=== PATIENT | female | born 1940 | race Caucasian/White ===

== ENCOUNTER 2018-06-23 21:38 | Inpatient (IN) ==
--- OUTSIDE RECORDS SUMMARY | 2018-06-23 21:42 | External Medical Summary | Continuity of Care Document ---
:1940 Author Name Emily Stubbs, Provider Address Unavailable Unavailable , Care Team Providers Name Role Phone Unavailable Unavailable Unavailable SONNY MALLOY Unavailable Unavailable Unavailable Unavailable Unavailable Problems History of endometrial cancer (V10.42) (Z85.42) Dementia (294.20) (F03.90) Menopausal symptoms (627.2) (N95.1) Allergies and Adverse Reactions No Known Drug Allergies (Allergy) Medications Aricept TABS , M.D. Refills: 0 Aspirin 81 MG TABS , M.D. Refills: 0 Procedures History of Total Abdominal Hysterectomy Status: Completed Immunizations Immunizations not documented Social History - Smoking Status Never smoker Plan of Treatment Planned Observations Planned Goals not documented Results No Known Results Results not documented
[2018-06-23] MEDS ORDERED: LORazepam 2 MG/ML VIAL (IM USE) ONE (22:47)
--- NOTE | 2018-06-23 22:51 | XRay Report ---
SINGLE VIEW CHEST CLINICAL HISTORY: Fall. Dementia. FINDINGS: An AP, portable, supine chest radiograph is obtained. No prior studies are available for co mparison at the time of dictation. The examination is degraded by portable technique and patient rota tion. The heart is enlarged. There is prominence of the pulmonary vasculature. Nonspecific interstit ial thickening is likely chronic. No airspace consolidation or large pleural effusion is identified. No pneumothorax is seen. The skeletal structures are osteopenic. The bony thorax is grossly intact. IMPRESSION: 1. Cardiomegaly with prominence of the pulmonary vasculature. Correlate clinically for evidence of mi ld congestive failure. 2. No airspace consolidation or large pleural effusion is identified. Electronically signed by: Garcia Dick M.D. 06/23/2018 10:50 PM
--- NOTE | 2018-06-23 22:53 | XRay Report ---
SINGLE VIEW PELVIS; 2 VIEWS LEFT HIP CLINICAL HISTORY: Fall with left hip pain. FINDINGS: An AP view of the pelvis with AP and cross table lateral views of the left hip are obtained . No prior studies are available for comparison at the time of dictation. The skeletal structures are osteopenic. There is no radiographic evidence of acute fracture involving the right hip or the bony pelvis. There is an impacted and minimally distracted subcapital fracture of the left femur with over lying soft tissue edema. Moderate arthritic change and joint space narrowing is seen in the hips. Deg enerative sclerosis is noted in the sacroiliac joints. Lumbosacral spondylosis is partially imaged. T here are numerous pelvic phleboliths. IMPRESSION: 1. There is an impacted and minimally distracted subcapital fracture of the left femur. 2. No fracture is seen involving the right hip or the bony pelvis. Electronically signed by: Garcia Dick M.D. 06/23/2018 10:51 PM
[2018-06-23 23:01] LABS: Basophils # (auto) 0.02 K/uL (0-0.2); Basophils % (auto) 0.1 %; Eosinophils # (auto) 0.09 K/uL (0-0.5); Eosinophils % (auto) 0.6 %; Hematocrit (blood only) 40.6 % (37-47); Hemoglobin 14.2 g/dL (12.0-16.0); Immature Granulocytes # (auto) 0.11 K/uL (0.00-0.02); Immature Granulocytes % (auto) 0.8 %; Lymphocytes # (auto) 0.66 K/uL (1.2-3.4); Lymphocytes % (auto) 4.7 %; Mean Corpuscular Volume 84.9 fL (80-100); Mean Platelet Volume 11.3 fL (7.4-10.4); Monocytes # (auto) 0.75 K/uL (0.11-0.59); Monocytes % (auto) 5.4 %; Neutrophils # (auto) 12.34 K/uL (1.4-6.5); Neutrophils % (auto) 88.4 %; Platelet Count 151 K/uL (130-400); RDW Coefficient of Variation 14.3 % (11.5-14.5); RDW Standard Deviation 45.1 fL (36.4-46.3); Red Blood Count 4.78 M/uL (4.2-5.4); White Blood Count 13.97 K/uL (4.8-10.8)
[2018-06-23 23:13] LABS: INR 1.1 (0.9-1.1); Partial Thromboplastin Ratio 0.9; Partial Thromboplastin Time 23.1 Seconds (21.0-31.0); Prothrombin Time 11.2 Seconds (9.0-12.0)
[2018-06-23 23:16] LABS: BUN Creatinine Ratio 20.2 (10-20); Calcium 9.1 mg/dl (8.5-10.1); Creatinine Clr Calc Pharmacy 52.6 ml/min; Est GFR (African American) 83.8; Est GFR (Non-African American) 72.3; Potassium 2.9 mmol/L (3.5-5.1)
[2018-06-23] MEDS ORDERED: cefTRIAXone SODIUM 1,000 MG/50 ML BAG IV STA (23:19)
[2018-06-23 23:32] LABS: Appearance Urine Cloudy (Clear); Bacteria Urine Automated 4+ (Negative); Bilirubin Urine Negative (Negative); Color Urine Yellow; Epithelial Cell Urine Auto 0-5 /lpf (0-5); Glucose Urine UA Negative (Negative); Ketones Urine 2+ (Negative); Leukocyte Esterase Urine 1+ (Negative); Nitrite Urine Positive (Negative); Protein Urine 1+ (Negative); Specific Gravity Urine 1.021 (1.000-1.030); Urobilinogen Urine Negative (Negative)
[2018-06-23] MEDS ORDERED: LORazepam 0.5 MG/1 ML VIAL IV STA (23:47)
[2018-06-23] MEDS ORDERED: MoRPHine SULFATE 2 MG/ML CARP IV STA (23:47)
[2018-06-23] MEDS ORDERED: POTASSIUM CHLORIDE / WTR 10 MEQ/100 ML PLCT IV STA (23:47)
[2018-06-23 23:50] LABS: Albumin Level 3.4 gm/dl (3.4-5.0); Bilirubin Direct 0.2 mg/dl (0-0.2); Bilirubin,Total 0.7 mg/dl (0.2-1); Total Protein 6.6 gm/dl (6.4-8.2)
--- NOTE | 2018-06-24 01:07 | History and Physical Report ---
DATE OF ADMISSION: 06/23/2018 CHIEF COMPLAINT: Status post fall and left hip fracture. HISTORY OF PRESENT ILLNESS: A 78-year-old female with past medical history significant for Alzheimer's dementia. No other significant medical problems. She is only on Aricept and vitamin B1. She follows with Dr. White as PCP and [facility] for neurology . Lives with her . Since last 4-5 years, she has dementia.Now she only can recognize her . does not recognize her kids. She can eat regular food, walks without help, but walks slowly. Today, she was coming from the bathroom when she fell and could not get up and was brought in here and found to have left hip fracture. As per , there are no heart problems or lung issues. Here we could not get any history from the patient as the patient has severe dementia. She is somewhat restless and trying to get up from the bed and holding her . says he is going to stay with the patient tonight. She has tachycardia, hypoxia requiring oxygen. EKG shows sinus tachycardia. Chest x-ray, she has possible congestion. There is no edema of the lower extremity. Blood pressure is high, could be situational, mild elevation of white count. Hemoglobin is stable. Kidney function is fine. Urine looks infected. We are going to admit the patient to tele floor. The patient's and son are requesting Dr. Diaz for orthopedics and Dr. Francisco for cardiology. They personally know the doctors. Initially he wanted to take to [facility], but he is okay to stay here and get advice from Dr. Diaz. worked in [facility] in the past. ALLERGIES: No known drug allergies. PAST MEDICAL HISTORY: As mentioned above. PAST SURGICAL HISTORY: Hysterectomy with tubal ligation. MEDICATIONS: Aricept 10 mg p.o. a.m. and vitamin B1. FAMILY HISTORY: Noncontributory. SOCIAL HISTORY: No smoking history. Currently living with her . REVIEW OF SYSTEMS: Unobtainable. PHYSICAL EXAMINATION: GENERAL: The patient is old and frail, restless. VITAL SIGNS: Temperature 36.8, pulse 120, respiratory rate 18, blood pressure 198/114, and oxygen 90% on room air. HEENT: No pallor, no icterus. Pupils equal, round, reactive to light. NECK: No JVD, no neck masses. CARDIOVASCULAR: S1, S2 heard, tachycardia. No murmurs. RESPIRATORY SYSTEM: Normal AP diameter. No accessory muscle use. Mild bibasilar crackles. No wheezing. ABDOMEN: Soft, bowel sounds present, nontender. No distention. CENTRAL NERVOUS SYSTEM: Not oriented, restless, does not obey any commands. Moves extremities. EXTREMITIES: No edema, no erythema. Left lower extremity is slightly shortened and externally rotated. LABORATORY DATA: WBC 13.9, hemoglobin 14.2, hematocrit 40.6, platelets 151. PT 11.2, INR 1.1, APTT 23.1. Sodium 142, potassium 2.9, chloride 104, bicarbonate 28, BUN 16, creatinine 0.7, serum glucose 131, calcium 9.1, magnesium 2, total bilirubin 0.7, direct bilirubin 0.2, AST 27, ALT 29, alkaline phosphorus 124. Urine looks cloudy and positive for nitrite. IMAGING DATA: Hip and pelvic x-ray shows impacted and minimally distracted subcapital fracture of the left femur. Chest x-ray, cardiomegaly with prominence of the pulmonary vasculature. Clinically correlate for evidence of mild CHF. EKG: Sinus tachycardia with rate of 129. ST-T wave abnormality seen. Incomplete Left bundle branch block. ASSESSMENT AND PLAN: This is a 78-year-old female with severe dementia, presents with fall and left hip fracture. 1. Left hip fracture secondary to mechanical fall. The patient has severe dementia. There is no cardiac history. No medical problems except for Alzheimer's dementia, but patient is tachycardic and hypoxic in the ER, could be from the pain,CXR possible congestion. We will get a cardiology consult preoperative evaluation. We will get an echocardiogram. Follow troponins, follow repeat EKG,. Possible surgery after clearance from cardiology.Will keep her n.p.o. Gentle fluids. IV pain medication p.r.n., IV antiemetics p.r.n. 2. Hypoxia requiring oxygen. This may be from pain. We will rule out pulmonary embolism with a CT of the chest. Also follow echocardiogram for any congestive heart failure. The patient given gentle fluids. We will monitor for any volume overload.Family wanted to wait on CT chest for now as patient was restless whole time and was just getting calmer with meds.. Will follow d dimer. 3. Hypokalemia. Potassium of 2.9. We will replace potassium. Follow the labs. 4. Tachycardia. possibly from pain. Will follow d dimer. Iv Lopressor prn. Monitor on tele. 5. Mild elevation of alk phosp. Will follow repeat labs. 6. Dementia, on Aricept, which she will continue and vitamin B1 which will be continued. The patient is restless, we will monitor for any delirium. Currently, placed on IV Ativan p.r.n. 7. Deep venous thrombosis prophylaxis, sequential compression devices for now. 8.. Disposition: Closely monitor in tele floor. Code status DNR as per discussion with the . PT and OT and social service to help with discharge planning. The was planning for longterm with dementia unit this month and we will get social service to help with discharge planning. JAN
[2018-06-24] MEDS ORDERED: METOPROLOL TARTRATE 1 MG/ML VIAL IV STA (01:45)
[2018-06-24] MEDS ORDERED: NITROGLYCERIN SL 0.4 MG/TAB TAB SL PRN (01:45)
[2018-06-24] MEDS ORDERED: METOPROLOL TARTRATE 1 MG/ML VIAL IV PRN (01:45)
[2018-06-24] MEDS ORDERED: MoRPHine SULFATE 2 MG/ML CARP IV PRN (01:45)
[2018-06-24] MEDS ORDERED: POLYETHYLENE (MIRALAX) 17 GM PACK PO PRN (01:45)
[2018-06-24] MEDS ORDERED: LORazepam 0.5 MG/1 ML VIAL IV PRN (01:45)
[2018-06-24] MEDS ORDERED: ACETAMINOPHEN 325 MG TAB PO PRN (01:45)
[2018-06-24] MEDS ORDERED: ONDANSETRON INJ 2 MG/ML 2 ML VIAL IV PRN (01:45)
--- NOTE | 2018-06-24 01:46 | Emergency Department Note ---
History of Present Illness General Chief complaint: Fall Stated complaint: fall/ hip pain History of Present Illness This 78-year-old presents to the ER complaining of fall and inability to walk Location: Hip Quality: Demented Severity: Demented Duration: Today Timing: Patient tripped and fell Context: Patient could not walk and has not brought her in Modifying factors: better with nothing; worse with walking Patient is demented and history is obtained from the . He is the primary caregiver. The patient still is at home. He states his fell earlier today and has been unable to walk since. He is unsure which hip she fell on. He does not believe she hit her head. He denies loss of consciousness lethargy or abnormal behavior. She is not on anticoagulants. Her only medical problem is dementia per . Home Medications Home Medications Medication Instructions Recorded Confirmed Type donepezil 10 mg PO DAILY 06/24/18 06/24/18 History vitamin B complex 1 tab PO DAILY 06/24/18 06/24/18 History Allergies Allergy/AdvReac Type Severity Reaction Status Date / Time No Known Allergies Allergy Unknown Verified 06/24/18 00:20 Past Med/Surg History Medical History Dementia Social History Preferred Language: Maori Current Living Situation: Spouse Smoking Status: Unknown if ever smoked Hx Alcohol Use: No (unknown) Hx Substance Use: No (unknown) Review of Systems Unobtainable due to cognitive status Physical Exam Vital Signs Vital Signs - 24 hr 06/23/18 21:50 06/24/18 01:18 06/24/18 01:45 Temperature 36.8 C 36.8 C Temperature Source Oral Oral Sepsis Recent Fever Within 48 Hours No Sepsis New/Unexplained Change in Mental Status No Sepsis Action Taken by Nursing No Action Required Pulse Rate 120 H Pulse Rate [Right Finger] 129 H 134 H Pulse Rhythm [Right Finger] Regular Regular Pulse Strength [Right Finger] Normal Respiratory Rate 18 18 18 Respiratory Effort / Characteristics Non-Labored Non-Labored Spontaneous Respiratory Depth Normal Normal Respiratory Pattern Regular Regular Blood Pressure 198/114 H Blood Pressure [Right Arm] 174/84 H 196/93 H Blood Pressure Mean 142 Blood Pressure Mean [Right Arm] 114 127 Blood Pressure Position [Right Arm] Lying Lying Pulse Oximetry 90 96 92 Oxygen Delivery Method Room Air Nasal Cannula Nasal Cannula Oxygen Flow Rate 3 3 06/24/18 02:00 Temperature Temperature Source Sepsis Recent Fever Within 48 Hours Sepsis New/Unexplained Change in Mental Status Sepsis Action Taken by Nursing Pulse Rate 132 H Pulse Rate [Right Finger] Pulse Rhythm [Right Finger] Pulse Strength [Right Finger] Respiratory Rate Respiratory Effort / Characteristics Respiratory Depth Respiratory Pattern Blood Pressure 196/94 H Blood Pressure [Right Arm] Blood Pressure Mean Blood Pressure Mean [Right Arm] Blood Pressure Position [Right Arm] Pulse Oximetry Oxygen Delivery Method Oxygen Flow Rate VITALS: Vitals are noted on the nurse's note and reviewed by myself. Vital signs hypertensive. GENERAL: Demented female holding her 's hand, in no acute distress, nondiaphoretic, well-developed well-nourished. SKIN: The skin was without rashes, erythema, edema, or bruising. There is no tenting of the skin. Capillary reflex less than 2 seconds. HEAD: Normocephalic atraumatic. EARS: External auditory canals clear, tympanic membranes pearly molina without erythema or effusion bilaterally. EYES: Pupils equal round and reactive to light and accommodation. Conjunctivae without injection, sclerae without icterus. Extraocular movements intact. NOSE: Patent, turbinates without inflammation or discharge. MOUTH: Mucous membranes moist. Pharynx without erythema or exudate. Uvula midline. Airway patent. Tongue does not deviate. NECK: Supple without nuchal rigidity. No lymphadenopathy. No thyromegaly. Cervical spine is nontender. No JVD. HEART: Regular rate and rhythm LUNGS: Clear to auscultation bilaterally without wheezes, rales or rhonchi. No retractions or accessory muscle use. ABDOMEN: Positive bowel sounds x 4. Normal tympanic percussion. Soft, nontender, without masses or organomegaly. Slade sign negative. No guarding or rebound tenderness. No CVA tenderness MUSCULOSKELETAL: No muscle atrophy, erythema, or edema noted. Left hip tender to palpation with increased pain with range of motion. No lumbar /thoracic pain on palpation. Right hip nontender to palpation. All other extremities full range of motion without pain. NEURO: Patient was alert but not oriented to person place and time. No focal neurological deficits. Course Administered Medications Potassium Chloride/Dextrose/Sod Cl (D5nss + 20meq Kcl) 20 meq in 1,000 mls @ 50 mls/hr IV .Q20H BRENDA Stop: 07/24/18 01:59 Last Admin: 06/24/18 02:40 Dose: 50 mls/hr Documented by: [id number] Potassium Chloride (K Saulo / Wtr) 10 meq in 100 mls @ 100 mls/hr IV Q1H BRENDA Stop: 06/24/18 05:14 Last Admin: 06/24/18 02:40 Dose: 100 mls/hr Documented by: [id number] Discontinued Medications Ceftriaxone Sodium (Rocephin) 1,000 mg in 50 mls @ 100 mls/hr IV NOW STA Stop: 06/23/18 23:48 Last Infusion: 06/24/18 00:15 Dose: 0 mls/hr Documented by: [id number] Admin: 06/23/18 23:42 Dose: 100 mls/hr Documented by: [id number] Lorazepam (Ativan) 0.5 mg in 1 mls @ 1 mls/min IV NOW STA Stop: 06/23/18 23:48 Last Admin: 06/23/18 23:52 Dose: 1 mls/min Documented by: [id number] Potassium Chloride (K Saulo / Wtr) 10 meq in 100 mls @ 100 mls/hr IV Q1H STA Stop: 06/24/18 00:46 Last Infusion: 06/24/18 02:31 Dose: 0 mls/hr Documented by: [id number] Admin: 06/24/18 01:30 Dose: 100 mls/hr Documented by: [id number] Lorazepam (Ativan) Confirm Administered Dose 2 mg .ROUTE .STK-MED ONE Stop: 06/23/18 22:48 Last Admin: 06/23/18 23:13 Dose: 1 mg Documented by: [id number] Metoprolol Tartrate (Lopressor) 2.5 mg IV NOW STA Stop: 06/24/18 01:46 Last Admin: 06/24/18 02:00 Dose: 2.5 mg Documented by: [id number] Morphine Sulfate (Morphine Sulfate) 2 mg IV NOW STA Stop: 06/23/18 23:48 Last Admin: 06/23/18 23:53 Dose: 2 mg Documented by: [id number] Potassium Chloride (Susan Ciel Elix) 40 meq PO ONE ONE Stop: 06/24/18 02:01 Last Admin: 06/24/18 02:50 Dose: Not Given Documented by: [id number] Medical Decision Making Medical Records Attestation: I reviewed the patient's medical records. Home Medications Current Medication List: was personally reviewed by me Laboratory Data Attestation: I reviewed the patient's lab results. Result diagrams: 06/23/18 22:50 06/23/18 22:50 Lab Results 06/23/18 06/23/18 06/23/18 Range/Units 22:50 22:50 22:50 WBC 13.97 H (4.8-10.8) K/uL RBC 4.78 (4.2-5.4) M/uL Hgb 14.2 (12.0-16.0) g/dL Hct 40.6 (37-47) % MCV 84.9 (80-100) fL MCH 29.7 (25-34) pg MCHC 35.0 (32-36) g/dL RDW Std Deviation 45.1 (36.4-46.3) fL RDW Coeff of Anoop 14.3 (11.5-14.5) % Plt Count 151 (130-400) K/uL MPV 11.3 H (7.4-10.4) fL Immature Gran % (Auto) 0.8 % Neut % (Auto) 88.4 % Lymph % (Auto) 4.7 % [place] % (Auto) 5.4 % Eos % (Auto) 0.6 % Baso % (Auto) 0.1 % Immature Gran # (Auto) 0.11 H (0.00-0.02) K/uL Neut # (Auto) 12.34 H (1.4-6.5) K/uL Lymph # (Auto) 0.66 L (1.2-3.4) K/uL [place] # (Auto) 0.75 H (0.11-0.59) K/uL Eos # (Auto) 0.09 (0-0.5) K/uL Baso # (Auto) 0.02 (0-0.2) K/uL PT 11.2 (9.0-12.0) Seconds INR 1.1 (0.9-1.1) APTT 23.1 (21.0-31.0) Seconds PTT Ratio 0.9 Sodium 142 (136-145) mmol/L Potassium 2.9 L (3.5-5.1) mmol/L Chloride 104 (98-107) mmol/L Carbon Dioxide 28 (21-32) mmol/L Anion Gap 10.0 (3-11) BUN 16 (7-18) mg/dl Creatinine 0.78 (0.6-1.2) mg/dl Est Cr Clr Drug Dosing 52.6 ml/min Est GFR ( Amer) 83.8 Est GFR (Non-Af Amer) 72.3 BUN/Creatinine Ratio 20.2 H (10-20) Glucose 131 H (70-99) mg/dl Calcium 9.1 (8.5-10.1) mg/dl Magnesium 2.0 (1.8-2.4) mg/dl Total Bilirubin 0.7 (0.2-1) mg/dl Direct Bilirubin 0.2 (0-0.2) mg/dl AST 27 (15-37) U/L ALT 29 (12-78) U/L Alkaline Phosphatase 124 H (45-117) U/L Total Protein 6.6 (6.4-8.2) gm/dl Albumin 3.4 (3.4-5.0) gm/dl Urine Color Urine Appearance (Clear) Urine pH (4.5-7.5) Ur Specific [place] (1.000-1.030) Urine Protein (Negative) Urine Glucose (UA) (Negative) Urine Ketones (Negative) Urine Blood (Negative) Urine Nitrite (Negative) Urine Bilirubin (Negative) Urine Urobilinogen (Negative) Ur Leukocyte Esterase (Negative) Urine WBC (Auto) (0-5) /hpf Urine RBC (Auto) (0-4) /hpf U Hyaline Cast (Auto) (0-5) /lpf U Epithel Cells (Auto) (0-5) /lpf Urine Bacteria (Auto) (Negative) Blood Type Antibody Screen 06/23/18 06/23/18 Range/Units 22:50 23:10 WBC (4.8-10.8) K/uL RBC (4.2-5.4) M/uL Hgb (12.0-16.0) g/dL Hct (37-47) % MCV (80-100) fL MCH (25-34) pg MCHC (32-36) g/dL RDW Std Deviation (36.4-46.3) fL RDW Coeff of Anoop (11.5-14.5) % Plt Count (130-400) K/uL MPV (7.4-10.4) fL Immature Gran % (Auto) % Neut % (Auto) % Lymph % (Auto) % [place] % (Auto) % Eos % (Auto) % Baso % (Auto) % Immature Gran # (Auto) (0.00-0.02) K/uL Neut # (Auto) (1.4-6.5) K/uL Lymph # (Auto) (1.2-3.4) K/uL [place] # (Auto) (0.11-0.59) K/uL Eos # (Auto) (0-0.5) K/uL Baso # (Auto) (0-0.2) K/uL PT (9.0-12.0) Seconds INR (0.9-1.1) APTT (21.0-31.0) Seconds PTT Ratio Sodium (136-145) mmol/L Potassium (3.5-5.1) mmol/L Chloride (98-107) mmol/L Carbon Dioxide (21-32) mmol/L Anion Gap (3-11) BUN (7-18) mg/dl Creatinine (0.6-1.2) mg/dl Est Cr Clr Drug Dosing ml/min Est GFR ( Amer) Est GFR (Non-Af Amer) BUN/Creatinine Ratio (10-20) Glucose (70-99) mg/dl Calcium (8.5-10.1) mg/dl Magnesium (1.8-2.4) mg/dl Total Bilirubin (0.2-1) mg/dl Direct Bilirubin (0-0.2) mg/dl AST (15-37) U/L ALT (12-78) U/L Alkaline Phosphatase (45-117) U/L Total Protein (6.4-8.2) gm/dl Albumin (3.4-5.0) gm/dl Urine Color Yellow Urine Appearance Cloudy A (Clear) Urine pH 5.0 (4.5-7.5) Ur Specific [place] 1.021 (1.000-1.030) Urine Protein 1+ H (Negative) Urine Glucose (UA) Negative (Negative) Urine Ketones 2+ H (Negative) Urine Blood 1+ H (Negative) Urine Nitrite Positive A (Negative) Urine Bilirubin Negative (Negative) Urine Urobilinogen Negative (Negative) Ur Leukocyte Esterase 1+ H (Negative) Urine WBC (Auto) 10-30 H (0-5) /hpf Urine RBC (Auto) 5-10 H (0-4) /hpf U Hyaline Cast (Auto) 10-30 H (0-5) /lpf U Epithel Cells (Auto) 0-5 (0-5) /lpf Urine Bacteria (Auto) 4+ H (Negative) Blood Type B Positive Antibody Screen NEGATIVE Imaging Data Attestation: I personally reviewed and interpreted this imaging study as follows: Blood Pressure Blood Pressure Findings: Elevated blood pressure Blood Pressure Disposition: further management by hospitalist [facility] Narrative Prior records/ancillary studies reviewed and summarized above. Nursing notes reviewed. Additional history obtained from family. The patient's history was concerning for inability to walk. Differential diagnosis: Etiologies such as fracture, metabolic, infection, hypo/hyperglycemia, electrolyte abnormalities, cardiac sources, intracerebral event, toxicologic, neurologic, as well as others were entertained. Physical examination: As above. ER treatment provided: IV Lock Ativan IV, Rocephin IV On reassessment the patient felt better. Diagnostics interpretation by me: ECG: Poor baseline, normal sinus, left bundle branch block, no acute ST-T wave changes, rate of 129. Impression left bundle branch block with sinus tachycardia interpreted by myself The labs revealed leukocytosis, hypokalemia, urine concerning for infection and sent for culture Imaging studies: Hip x-ray concerning for left femoral neck fracture per my interpretation. Chest x-ray with no acute consolidation, pneumothorax or free air per my interpretation Consultation: A consultation was placed with the hospitalist. The case was discussed and diagnostics were reviewed. The patient was evaluated in the ER for further treatment. Exam and history seem consistent with hip fracture with UTI and hypokalemia. Medicine was consulted for admission. ED set for hip fracture was ordered. Family is agreeable treatment plan of admission. By the evaluation outlined above emergent etiologies such as cardiac sources, intracerebral event, toxologic, neurologic, abnormalities blood glucose, metabolic, as well as others were deemed relatively unlikely. The family informed about the findings as listed above. All questions were answered and pleased with the treatment. Case reviewed with my attending The chart was completed utilizing Dragon Speech voice recognition software. Grammatical errors, random word insertions, pronoun errors, and incomplete sentences are an occassional consequence of this system due to software limitations, ambient noise, and hardware issues. Any formal questions or concerns about the content, text, or information contained within the body of this dictation should be directly addressed to the physician production administrative assistant for clarification. Impression & Plan Closed hip fracture, Acute UTI, Acute hypokalemia Discharge Plan Visit Data *Final* Discharge Date/Time: 06/24/18 01:42 Chief Complaint: Fall Stated Complaint: fall/ hip pain ED Provider: Pavel Neri ED Midlevel Provider: Michelle Shine Discharge Problem: Closed hip fracture, Acute UTI, Acute hypokalemia Patient Disposition: Admitted As Inpatient Condition: Fair
[2018-06-24] MEDS: POTASSIUM CHLORIDE / WTR 10 MEQ/100 ML PLCT IV SCH ×3 (02:40→04:45)
[2018-06-24] MEDS: D5NSS + 20MEQ KCL 20 MEQ/1,000 ML BAG IV SCH (02:40)
[2018-06-24] MEDS: POTASSIUM CHLORIDE 20 MEQ/15 ML UDC PO ONE ×2 (02:40→02:50)
[2018-06-24] MEDS ORDERED: ROPIVACAINE 0.5% HCL/PF 150 MG, BUPIVACAINE 0.5% MPF 30 ML, EPINEPHrine 30MG/30ML (OR U... INFIL SCH (06:00)
[2018-06-24 06:19] LABS: Basophils # (auto) 0.03 K/uL (0-0.2); Basophils % (auto) 0.2 %; Eosinophils # (auto) 0.06 K/uL (0-0.5); Eosinophils % (auto) 0.4 %; Hematocrit (blood only) 40.8 % (37-47); Hemoglobin 14.2 g/dL (12.0-16.0); Immature Granulocytes # (auto) 0.06 K/uL (0.00-0.02); Immature Granulocytes % (auto) 0.4 %; Lymphocytes # (auto) 0.85 K/uL (1.2-3.4); Lymphocytes % (auto) 5.9 %; Mean Corpuscular Hgb Conc 34.8 g/dL (32-36); Monocytes # (auto) 0.93 K/uL (0.11-0.59); Monocytes % (auto) 6.5 %; Neutrophils # (auto) 12.47 K/uL (1.4-6.5); Neutrophils % (auto) 86.6 %; Platelet Count 145 K/uL (130-400); RDW Coefficient of Variation 14.4 % (11.5-14.5); RDW Standard Deviation 44.6 fL (36.4-46.3); Red Blood Count 4.86 M/uL (4.2-5.4)
[2018-06-24 07:08] LABS: BUN Creatinine Ratio 15.9 (10-20); Calcium 8.6 mg/dl (8.5-10.1); Creatinine Clr Calc Pharmacy 61.3 ml/min; Est GFR (African American) 96.9; Est GFR (Non-African American) 83.6; Magnesium 2.1 mg/dl (1.8-2.4); Potassium 3.6 mmol/L (3.5-5.1)
[2018-06-24 07:09] LABS: D Dimer > 35200 ug/L FEU (0-500)
--- NOTE | 2018-06-24 07:18 | XRay Report ---
XR chest 1V portable HISTORY: 78 years-old Female congestion cough with congestion COMPARISON: Chest radiograph 06/23/2018 TECHNIQUE: Portable AP view of the chest FINDINGS: Cardiac silhouette is mildly enlarged, unchanged. Mild pulmonary vascular congestion without overt pu lmonary edema. There is no pneumothorax. Interval development of mild subsegmental bibasilar opacitie s with blunting of the costophrenic angles. Degenerative changes of the shoulders and spine. IMPRESSION: 1. Cardiomegaly with pulmonary vascular congestion. 2. Interval development of subsegmental bibasilar densities suggestive of atelectasis or pneumonitis. 3. Suggestion of trace pleural effusions. The above report was generated using voice recognition software. It may contain grammatical, syntax o r spelling errors. Electronically signed by: Clay Busch M.D. 06/24/2018 7:17 AM
[2018-06-24 07:55] LABS: Albumin Level 3.4 gm/dl (3.4-5.0); Bilirubin Direct 0.1 mg/dl (0-0.2); Bilirubin,Total 0.6 mg/dl (0.2-1); Total Protein 6.7 gm/dl (6.4-8.2)
[2018-06-24] MEDS ORDERED: PNEUMOCOCCAL ADMINISTRATION CHARGE ONE (08:00)
[2018-06-24] MEDS ORDERED: PNEUMOCOCCAL POLYSACCHARIDES 25 MCG/0.5 ML VIAL/SYR IM ONE (08:00)
[2018-06-24] MEDS: DONEPEZIL HCL 10 MG TAB PO SCH (08:11)
[2018-06-24] MEDS: THIAMINE HCL 50 MG TABLET PO SCH (08:11)
--- NOTE | 2018-06-24 08:22 | Hospitalist Progress Note ---
Date of Service June 24, 2018 Subjective Continuation of H and P. a/p: UTI started on rocephin. await cultures. Results & Data Vital Signs (Past 12 Hours) Vital Signs Temp Pulse Pulse Resp BP BP Pulse Ox 06/24/18 07:40 192/98 H 06/24/18 07:29 36.8 C 116 H 24 180/89 H 92 06/24/18 03:05 37.6 C H 110 H 18 148/91 H 95 06/24/18 02:00 132 H 196/94 H 06/24/18 01:45 36.8 C 116 H 134 H 18 196/93 H 92 06/24/18 01:18 129 H 18 174/84 H 96 06/23/18 21:50 36.8 C 120 H 18 198/114 H 90
[2018-06-24] MEDS ORDERED: OPTIRAY 320 125ml IV PRN (08:36)
--- NOTE | 2018-06-24 08:42 | CT Scan Report ---
CT ANGIOGRAM OF THE CHEST CLINICAL HISTORY: Atypical chest pain COMPARISON STUDY: Chest x-ray dated 06/24/2018 TECHNIQUE: Following the IV administration of 95 mL of Optiray-320, CT angiogram of the thorax was pe rformed from the thoracic inlet to the lung bases utilizing the pulmonary embolus protocol. Images ar e reviewed in the axial, sagittal, and coronal planes. IV contrast was administered without complicat ion. MIP imaging was performed. A dose lowering technique was utilized adhering to the principles of ALARA. CT DOSE: 522.40 mGy.cm FINDINGS: No pathologically enlarged axillary mediastinal or hilar lymph nodes were visualized. There was no evidence of thoracic aortic dilatation. There were no pulmonary artery filling defects to indicate acute pulmonary embolism. The study is mil dly compromised due to respiratory motion artifact with suboptimal evaluation of the lower lobe pulmo nary artery branches No pleural effusions are visualized. There is respiratory motion artifact. There are no significant pleural effusions. There are basilar o pacities, statistically atelectatic. There is suspected splenomegaly. There is 11 mm left adrenal adenoma IMPRESSION: 1. Technically limited study secondary to respiratory motion artifact 2. No pulmonary emboli identified 3. Dependent parenchymal opacities statistically atelectatic 4. Suspected splenomegaly Electronically signed by: Chad Melgar M.D. 06/24/2018 8:40 AM
--- NOTE | 2018-06-24 09:12 | Hospitalist Progress Note ---
Date of Service June 24, 2018 Assessment & Plan (1) Closed hip fracture: 1. Left hip fracture secondary to mechanical fall. The patient has severe dementia. -- evaluated this morning -- hypoxia likely secondary to atelectasis CT chest: no PE, pneumonia, effusion continue 2 L o2 via NC, incentive spirometry -- sinus tach secondary to pain, stress discussed with Dr. Meek metoprolol tartrate 25mg BID ordered monitor in tele -- no medical contraindication for orthopedic surgery this afternoon patient is moderate risk for cardio-pulmonary complications left a voicemail with Dr. Menendez, requesting callback to discuss preop evaluation discussed with patient's daughter Mireya, she is agreeable and understanding with plan for surgery r/o UTI -- ff up urine culture -- on empiric Ceftri IV Day 1 2. Hypoxia requiring oxygen. -- CT chest no effusion echo pending to r/o component of CHF 3. Hypokalemia. -- replaced, resolved 4. Tachycardia. possibly from pain --plan per #1 5. Mild elevation of alk phosp. Will follow repeat labs. 6. Dementia, on Aricept, which she will continue and vitamin B1 which will be continued. The patient is restless, we will monitor for any delirium. Currently, placed on IV Ativan p.r.n. 7. Deep venous thrombosis prophylaxis, sequential compression devices for now. -- Heparin/Lovenox after surgery 8.. Disposition -- will need Rehab after Surgery discussed with patient's daughter Mireya, she is agreeable and comfortable with plan of care Subjective ff up for L hip fracture seen sleeping, but easily awakened per daughter, patient has been sleeping, comfortable, not reporting pain or any other symptoms this morning tele: sinus tach pulse ox 75% on room air, 90% on 2 L via NC no other symptoms noted Review of Systems Review of Systems: Unobtainable due to cognitive status Physical Exam Physical Exam: General- sleeping, not in distress, no accessory muscle use Head- atraumatic Eyes- PERRL, EOMI, anicteric ENT- oropharynx clear Neck- supple, no JVD, no adenopathy, no thyromegaly; carotids +2/2, no bruits appreciated Lungs- clear to auscultation bilaterally, no rales/wheezes Heart- tachycardic rate, regular rhythm; no murmur, no gallop, no rub appreciated Abdomen- normal bowel sounds, nondistended, soft, nontender, no masses or hepatosplenomegaly Extremities- no pretibial edema, no calf tenderness; peripheral pulses intact Neuro- sleeping , no focal deficits noted when moving Skin- warm & dry Results & Data Vital Signs (Past 12 Hours) Vital Signs Temp Pulse Pulse Resp BP BP Pulse Ox 06/24/18 08:55 109 H 171/99 H 06/24/18 07:40 192/98 H 06/24/18 07:29 36.8 C 116 H 24 180/89 H 92 06/24/18 03:05 37.6 C H 110 H 18 148/91 H 95 06/24/18 02:00 132 H 196/94 H 06/24/18 01:45 36.8 C 116 H 134 H 18 196/93 H 92 06/24/18 01:18 129 H 18 174/84 H 96 06/23/18 21:50 36.8 C 120 H 18 198/114 H 90 Laboratory Results Laboratory Results - last 24 hr 06/23/18 06/23/18 06/23/18 22:50 22:50 22:50 WBC 13.97 H RBC 4.78 Hgb 14.2 Hct 40.6 MCV 84.9 MCH 29.7 MCHC 35.0 RDW Std Deviation 45.1 RDW Coeff of Anoop 14.3 Plt Count 151 MPV 11.3 H Immature Gran % (Auto) 0.8 Neut % (Auto) 88.4 Lymph % (Auto) 4.7 [place] % (Auto) 5.4 Eos % (Auto) 0.6 Baso % (Auto) 0.1 Immature Gran # (Auto) 0.11 H Neut # (Auto) 12.34 H Lymph # (Auto) 0.66 L [place] # (Auto) 0.75 H Eos # (Auto) 0.09 Baso # (Auto) 0.02 PT 11.2 INR 1.1 APTT 23.1 PTT Ratio 0.9 D-Dimer Sodium 142 Potassium 2.9 L Chloride 104 Carbon Dioxide 28 Anion Gap 10.0 BUN 16 Creatinine 0.78 Est Cr Clr Drug Dosing 52.6 Est GFR ( Amer) 83.8 Est GFR (Non-Af Amer) 72.3 BUN/Creatinine Ratio 20.2 H Glucose 131 H Calcium 9.1 Magnesium 2.0 Total Bilirubin 0.7 Direct Bilirubin 0.2 AST 27 ALT 29 Alkaline Phosphatase 124 H Troponin I Total Protein 6.6 Albumin 3.4 Urine Color Urine Appearance Urine pH Ur Specific [place] Urine Protein Urine Glucose (UA) Urine Ketones Urine Blood Urine Nitrite Urine Bilirubin Urine Urobilinogen Ur Leukocyte Esterase Urine WBC (Auto) Urine RBC (Auto) U Hyaline Cast (Auto) U Epithel Cells (Auto) Urine Bacteria (Auto) Blood Type Antibody Screen 06/23/18 06/23/18 06/24/18 22:50 23:10 05:56 WBC 14.40 H RBC 4.86 Hgb 14.2 Hct 40.8 MCV 84.0 MCH 29.2 MCHC 34.8 RDW Std Deviation 44.6 RDW Coeff of [place]oop 14.4 Plt Count 145 MPV 11.0 H Immature Gran % (Auto) 0.4 Neut % (Auto) 86.6 Lymph % (Auto) 5.9 [place] % (Auto) 6.5 Eos % (Auto) 0.4 Baso % (Auto) 0.2 Immature Gran # (Auto) 0.06 H Neut # (Auto) 12.47 H Lymph # (Auto) 0.85 L [place] # (Auto) 0.93 H Eos # (Auto) 0.06 Baso # (Auto) 0.03 PT INR APTT PTT Ratio D-Dimer Sodium Potassium Chloride Carbon Dioxide Anion Gap BUN Creatinine Est Cr Clr Drug Dosing Est GFR ( Amer) Est GFR (Non-Af Amer) BUN/Creatinine Ratio Glucose Calcium Magnesium Total Bilirubin Direct Bilirubin AST ALT Alkaline Phosphatase Troponin I Total Protein Albumin Urine Color Yellow Urine Appearance Cloudy A Urine pH 5.0 Ur Specific [place] 1.021 Urine Protein 1+ H Urine Glucose (UA) Negative Urine Ketones 2+ H Urine Blood 1+ H Urine Nitrite Positive A Urine Bilirubin Negative Urine Urobilinogen Negative Ur Leukocyte Esterase 1+ H Urine WBC (Auto) 10-30 H Urine RBC (Auto) 5-10 H U Hyaline Cast (Auto) 10-30 H U Epithel Cells (Auto) 0-5 Urine Bacteria (Auto) 4+ H Blood Type B Positive Antibody Screen NEGATIVE 06/24/18 06/24/18 06/24/18 05:56 05:56 05:56 WBC RBC Hgb Hct MCV MCH MCHC RDW Std Deviation RDW Coeff of [place]oop Plt Count MPV Immature Gran % (Auto) Neut % (Auto) Lymph % (Auto) [place] % (Auto) Eos % (Auto) Baso % (Auto) Immature Gran # (Auto) Neut # (Auto) Lymph # (Auto) [place] # (Auto) Eos # (Auto) Baso # (Auto) PT INR APTT PTT Ratio D-Dimer > 87590 H* Sodium 139 Potassium 3.6 D Chloride 104 Carbon Dioxide 28 Anion Gap 7.0 BUN 11 Creatinine 0.67 Est Cr Clr Drug Dosing 61.3 Est GFR ( Amer) 96.9 Est GFR (Non-Af Amer) 83.6 BUN/Creatinine Ratio 15.9 Glucose 141 H Calcium 8.6 Magnesium 2.1 Total Bilirubin Direct Bilirubin AST ALT Alkaline Phosphatase Troponin I 0.151 H* Total Protein Albumin Urine Color Urine Appearance Urine pH Ur Specific [place] Urine Protein Urine Glucose (UA) Urine Ketones Urine Blood Urine Nitrite Urine Bilirubin Urine Urobilinogen Ur Leukocyte Esterase Urine WBC (Auto) Urine RBC (Auto) U Hyaline Cast (Auto) U Epithel Cells (Auto) Urine Bacteria (Auto) Blood Type Antibody Screen 06/24/18 05:56 WBC RBC Hgb Hct MCV MCH MCHC RDW Std Deviation RDW Coeff of [place]oop Plt Count MPV Immature Gran % (Auto) Neut % (Auto) Lymph % (Auto) [place] % (Auto) Eos % (Auto) Baso % (Auto) Immature Gran # (Auto) Neut # (Auto) Lymph # (Auto) [place] # (Auto) Eos # (Auto) Baso # (Auto) PT INR APTT PTT Ratio D-Dimer Sodium Potassium Chloride Carbon Dioxide Anion Gap BUN Creatinine Est Cr Clr Drug Dosing Est GFR ( Amer) Est GFR (Non-Af Amer) BUN/Creatinine Ratio Glucose Calcium Magnesium Total Bilirubin 0.6 Direct Bilirubin 0.1 AST 26 ALT 27 Alkaline Phosphatase 128 H Troponin I Total Protein 6.7 Albumin 3.4 Urine Color Urine Appearance Urine pH Ur Specific [place] Urine Protein Urine Glucose (UA) Urine Ketones Urine Blood Urine Nitrite Urine Bilirubin Urine Urobilinogen Ur Leukocyte Esterase Urine WBC (Auto) Urine RBC (Auto) U Hyaline Cast (Auto) U Epithel Cells (Auto) Urine Bacteria (Auto) Blood Type Antibody Screen (1) Closed hip fracture Encounter type: initial encounter Laterality: left Qualified Code(s): S72.002A - Fracture of unspecified part of neck of left femur, initial encounter for closed fracture
[2018-06-24] MEDS: METOPROLOL TARTRATE 25 MG TAB PO SCH ×2 (09:48→21:45)
--- NOTE | 2018-06-24 10:55 | Consultation Report ---
DATE OF CONSULTATION: 06/24/2018 CHIEF COMPLAINT: Left hip pain. HISTORY OF PRESENT ILLNESS: The patient is a 78-year-old female with history of Alzheimer's dementia. She had a fall yesterday in the bathroom. She could not get up, was brought to the Emergency Department and was found to have a left hip fracture. She is admitted to the Hospitalist Service. She does not appear to have any other injuries at this time, though she does not express that she is having any pain. PAST MEDICAL HISTORY: Significant for Alzheimer's dementia. PAST SURGICAL HISTORY: Hysterectomy, tubal ligation. MEDICATIONS: She takes Aricept, vitamin B. ALLERGIES: She has no known drug allergies. FAMILY AND SOCIAL HISTORY: Reviewed in her initial H and P. PHYSICAL EXAMINATION: GENERAL: She is alert. She is in no distress. EXTREMITIES: Examination of the left lower extremity: She is moving her foot and toes appropriately, dorsiflex and plantar flex. Her left leg is shortened and externally rotated. Would not do any range of motion of her hip at this time. X-rays were reviewed today show a displaced left femoral neck fracture. IMPRESSION: Displaced left femoral neck fracture. PLAN: She has been admitted to the Hospitalist Service. She is on the telemetry unit at this time for tachycardia as well as hypoxia. She is n.p.o. We will keep her n.p.o. at this time for a possible surgery today specifically a cemented hemiarthroplasty of the left hip. This was discussed with her daughter who is here with her today. She was seen and examined by Dr. Menendez today as well. JAN
--- NOTE | 2018-06-24 11:49 | Anesthesiology Consultation ---
Date of Service June 24, 2018 Assessment & Plan (1) Encounter for pre-operative examination: Listed contact for patient is her daughter, Mireya Rueda. Phone number is [phone]. Chart Review Chart Review: Pending: Refer to Additional Notes / Consult section and Patient NOT seen in Pre Admission Testing Echo done this morning but still awaiting formal cardiology reading (confirmed with cardiopulmonary lab). Consults Requested cardiac -- sinus tach secondary to pain, stress discussed with Dr. Meek metoprolol tartrate 25mg BID ordered monitor in tele -- no medical contraindication for orthopedic surgery this afternoon patient is moderate risk for cardio-pulmonary complications History Surgery Operation Date: 06/24/18 07:00 Proposed Procedures p Left Hip Hemiarthroplasty - Jameel Menendez MD Height/Weight Height: 5 ft 5 in Weight: 64.1 kg Allergies Allergy/AdvReac Type Severity Reaction Status Date / Time No Known Allergies Allergy Unknown Verified 06/24/18 00:20 Medications Home Medications Medication Instructions Recorded Confirmed Last Taken donepezil 10 mg PO DAILY 06/24/18 06/24/18 Unknown vitamin B complex 1 tab PO DAILY 06/24/18 06/24/18 Unknown Active Medications Generic Name Dose Route Start Last Admin Trade Name Freq PRN Reason Stop Dose Admin Donepezil HCl 10 mg 06/24/18 09:00 06/24/18 08:11 Aricept PO 07/24/18 08:59 10 mg QAM BRENDA Administration Potassium Chloride/Dextrose/Sod Cl 20 meq in 1,000 mls @ 50 mls/hr 06/24/18 02:00 06/24/18 08:51 D5nss + 20meq Kcl IV 07/24/18 01:59 50 mls/hr .Q20H BRENDA Infusion Ioversol 95 ml 06/24/18 08:36 06/24/18 08:36 Optiray 320 125ml IV 06/28/18 08:35 95 ml ONCE PRN Administration Interaction Checking Metoprolol Tartrate 25 mg 06/24/18 09:00 06/24/18 09:48 Lopressor PO 07/24/18 08:59 25 mg BID BRENDA Administration Thiamine HCl 50 mg 06/24/18 09:00 06/24/18 08:11 Vitamin B-1 PO 07/24/18 08:59 50 mg QAM BRENDA Administration Past Medical History Medical History Closed hip fracture (Acute) Acute UTI (Acute) Acute hypokalemia (Acute) Replaced Cardiomegaly seen on chest x-ray Dementia Alzheimer's dementia. Able to recognized not her children. H/O: hysterectomy Hypoxia Requiring supplemental oxygen this admission. PE ruled out. Thought to be 2/2 atelectasis. Sinus tachycardia [place] to be 2/2 pain/stress. Per hospitalist, case discussed with Dr. Meek. Metoprolol 25mg PO BID ordered. Telemetry monitoring. No medical contraindication for orthopedic surgery this afternoon. Patient is a moderate risk for cardio-pulmonary complications. UTI (urinary tract infection) being treated currently Past Surgical History Surgical History Hx of tubal ligation Social History Smoking Status: Unknown if ever smoked Hx Alcohol Use: No (unknown) Hx Substance Use: No (unknown) Physical Exam Vital Signs Last Vital Signs Temp 35.7 C L 06/24/18 11:03 Pulse 97 H 06/24/18 11:03 Resp 24 06/24/18 11:03 BP 180/92 H 06/24/18 11:09 Pulse Ox 95 06/24/18 11:03 Testing Electrocardiogram Date: 06/23/18 Sinus tachycardia with rate of 129. ST-T wave abnormality seen. Incomplete Left bundle branch block. Patient received metoprolol IV Laboratory Results 06/24/18 05:56 06/24/18 05:56 Blood Type B Positive 06/23/18 22:50 Antibody Screen NEGATIVE 06/23/18 22:50 PT 11.2 Seconds (9.0-12.0) 06/23/18 22:50 INR 1.1 (0.9-1.1) 06/23/18 22:50 APTT 23.1 Seconds (21.0-31.0) 06/23/18 22:50 Urine Color Yellow 06/23/18 23:10 Urine Appearance Cloudy (Clear) A 06/23/18 23:10 Urine pH 5.0 (4.5-7.5) 06/23/18 23:10 Ur Specific [place] 1.021 (1.000-1.030) 06/23/18 23:10 Urine Protein 1+ (Negative) H 06/23/18 23:10 Urine Glucose (UA) Negative (Negative) 06/23/18 23:10 Urine Ketones 2+ (Negative) H 06/23/18 23:10 Urine Nitrite Positive (Negative) A 06/23/18 23:10 Ur Leukocyte Esterase 1+ (Negative) H 06/23/18 23:10 Urine WBC (Auto) 10-30 /hpf (0-5) H 06/23/18 23:10 Urine RBC (Auto) 5-10 /hpf (0-4) H 06/23/18 23:10 U Hyaline Cast (Auto) 10-30 /lpf (0-5) H 06/23/18 23:10 U Epithel Cells (Auto) 0-5 /lpf (0-5) 06/23/18 23:10 Urine Bacteria (Auto) 4+ (Negative) H 06/23/18 23:10
--- NOTE | 2018-06-24 13:11 | Cardiology Consultation ---
Date of Consultation June 24, 2018 Assessment & Plan (1) Encounter for pre-operative examination: The patient is at an elevated, but not prohibitive, cardiac risk for repair of her hip fracture. However, risk of conservative care would be much greater, and therefore, would proceed with surgery as planned. Low-dose beta blockade will be initiated to assist with control of her blood pressure and sinus tachycardia. This may also function as a cardioprotective agent. (2) Elevated troponin: Suspect this is related to her tachycardia. As above, low-dose beta blockade will be initiated. (3) Abnormal ECG: ECG note a complete left bundle branch block with repolarization changes. Uncertain of the duration of this abnormality. History of Present Illness Attending Physician: Jenaro Penn MD History of Present Illness Mrs. Rueda is a 78-year-old female admitted yesterday after a fall in her bathroom which resulted in a left hip fracture. This consultation was ordered as a preoperative cardiac evaluation. The history is obtained from the patient's daughter was at the bedside, and her medical record. She is severely demented and unable to carry on his intelligent conversation. Apparently, the patient was leaving the bathroom, and had a mechanical fall landing on her left side. She was unable to stay and therefore, 911 was called. Evaluation emergency room confirmed a left intertrochanteric fracture. Surgery is planned for later this afternoon with Dr. Menendez. The patient has never known of a cardiac event. She has never complained of exertional chest pain or limiting dyspnea to her family. She has never experienced syncope, presyncope, PND, orthopnea, or palpitations. Currently, patient is resting comfortably in bed without complaints of chest pain or dyspnea. Past medical surgical history 1. Alzheimer's dementia 2. History of endometrial carcinoma 3. Total abdominal hysterectomy 4. Tubal ligation Social history , lives with her No tobacco or alcohol Family history Noncontributory Review of systems Unobtainable Allergies Allergy/AdvReac Type Severity Reaction Status Date / Time No Known Allergies Allergy Unknown Verified 06/24/18 00:20 Home Medications Home Medications Medication Instructions Recorded Confirmed Type donepezil 10 mg PO DAILY 06/24/18 06/24/18 History vitamin B complex 1 tab PO DAILY 06/24/18 06/24/18 History Patient History Medical History Closed hip fracture (Acute) Acute UTI (Acute) Acute hypokalemia (Acute) Replaced Cardiomegaly seen on chest x-ray Dementia Alzheimer's dementia. Able to recognized not her children. H/O: hysterectomy Hypoxia Requiring supplemental oxygen this admission. PE ruled out. Thought to be 2/2 atelectasis. Sinus tachycardia [place] to be 2/2 pain/stress. Per hospitalist, case discussed with Dr. Meek. Metoprolol 25mg PO BID ordered. Telemetry monitoring. No medical contraindication for orthopedic surgery this afternoon. Patient is a moderate risk for cardio-pulmonary complications. UTI (urinary tract infection) being treated currently Surgical History Hx of tubal ligation Social History Preferred Language: Divehi Current Living Situation: Spouse Smoking Status: Unknown if ever smoked Hx Alcohol Use: No (unknown) Hx Substance Use: No (unknown) Physical Exam Physical Exam: In general similarly female lying supine in bed without complaints. HEENT exam is negative. Neck is supple with full carotid upstrokes. There are no carotid bruits. Jugular venous pressure is difficult to assess. Cardiovascular CV reveals a regular rhythm with normal S1-S2. Heart tones are distant. No obvious murmurs. Lungs are clear anteriorly. Abdomen is soft without bruit. Extremities reveal no peripheral edema. Results & Data Vital Signs (Past 12 Hours) Vital Signs Temp Pulse Pulse Resp BP BP Pulse Ox 06/24/18 11:09 180/92 H 06/24/18 11:03 35.7 C L 97 H 24 175/107 H 95 06/24/18 08:55 109 H 171/99 H 06/24/18 07:40 192/98 H 06/24/18 07:29 36.8 C 116 H 24 180/89 H 92 06/24/18 03:05 37.6 C H 110 H 18 148/91 H 95 06/24/18 02:00 132 H 196/94 H 06/24/18 01:45 36.8 C 116 H 134 H 18 196/93 H 92 06/24/18 01:18 129 H 18 174/84 H 96 Laboratory Results [employer] DIRECTOR notes hemoglobin 14.2, hematocrit 40.8, white count 14.4, platelet count of 145,000. Electrolytes sodium 139, potassium 4.0, chloride 104, bicarb 28, BUN 11, creatinine 0.67, glucose of 147. Troponin I level is 0.151. D-dimer is greater than 35,000 Diagnostic Findings EKG notes sinus tachycardia and left bundle branch block with repolarization changes. Chest x-ray notes cardiomegaly. CT scan of the chest notes no pulmonary emboli.
[2018-06-24] MEDS ORDERED: fentaNYL citrate 100 MCG/2 ML VIAL ONE (13:26)
[2018-06-24] MEDS ORDERED: MIDAZOLAM HCL 1 MG/ML 2ML VIAL ONE (13:26)
[2018-06-24] MEDS ORDERED: POVIDONE-IODINE OP SOLN 30 ML BTL ONE (13:27)
[2018-06-24] MEDS ORDERED: PROPOFOL IV EMULSION 10 MG/ML 20 ML VIAL IV ONE (13:27)
--- NOTE | 2018-06-24 14:17 | History & Physical Bridge Note ---
Date of Service June 24, 2018 History & Physical Bridge Note I have examined the patient, reviewed the History & Physical and in the interval since the performance of the History & Physical I have noted the following changes of clinical significance: no changes noted
[2018-06-24] MEDS ORDERED: KETAMINE HCL INJ 50 MG/ML 10 ML VIAL ONE (14:28)
--- NOTE | 2018-06-24 16:27 | Fluoroscopy Report ---
INTRAOPERATIVE RADIOGRAPHS CLINICAL HISTORY: Left hip arthroplasty. Fluoroscopy time: 17 seconds. FINDINGS: 2 spot fluoroscopic views of the left hip are compared to radiographs dated 06/23/2018. A uni polar left hip arthroplasty is in near anatomic alignment. There is no evidence of fracture on these fluoroscopic views. IMPRESSION: Intraoperative images from a left hip arthroplasty procedure as above. Electronically signed by: Garcia Dick M.D. 06/24/2018 4:26 PM
--- NOTE | 2018-06-24 16:37 | Operative Report ---
Post Operative Report Pre & Post Diagnosis Operation Date: 06/24/18 07:00 Pre-Op Diagnosis: Displaced left femoral neck fracture. Post-Op Diagnosis: Displaced left femoral neck fracture. Procedure Operation Date: 06/24/18 07:00 Actual Procedures p Left hip hemiarthroplasty, anterior, cemented(Left) - Brad Kirk DO Surgeon Brad Kirk DO Email Marketer Brad Sinclair PAC Estimated Blood Loss 100 Findings Consistent with Post-Op Diagnosis Specimens Left femoral head Complications none Disposition Disposition: Recovery Room Indications 8-year-old female who has advanced dementia. She was ambulating this morning when she tripped and fell. She came to the emergency room where radiographs demonstrated a displaced left femoral neck fracture. She was admitted to the hospital service and orthopedics was consulted. After discussions with her we elected to proceed with a left hip hemiarthroplasty. Description of Procedure Implants used [employer] T[employer] total hip arthroplasty system with a size 7 echo fracture stem with a collar, a 47 mm acetabular shell and a 28 mm head with a +0 neck Patient arrived from the hospital room for the above procedure. They were seen in the preoperative holding area and the operative extremity was identified and signed. They were given a spinal anesthetic. They were given a preoperative antibiotic and TXA. They were taken back To the operating room and laid on the table in the supine position. The leg was brought out through a Puristst leg positioner. The hip was then prepped and draped in sterile fashion. A timeout was done and the patient in upper extremities properly identified. An anterior approach was used. Dissection was taken down through the fascia and the tensor muscle belly was retracted laterally and the rectus was retracted medially. The circumflex vessels were identified and ligated. The capsule was then incised and tagged for later repair. The femoral neck was then cut and the femoral head was removed as well as the remainder of the femoral neck. The acetabulum was exposed. Time was spent doing a complete circumferential labral release. The femoral head measured to be a size 47. A 47 mm head trial was placed and it seemed to be a good fit within the acetabulum. Surrounding soft tissues were then injected with 100 cc of an orthopedic pain control cocktail. The proximal femur was then exposed. Sequential broaching up to a size 9 broach was done. Off that broach a size 47 shell with a 28 head and a +0 neck was trialed. The hip was reduced and fluoroscopic images showed anatomic alignment of the implants in acceptable length. The broach was removed. The final size 7 echo fracture stem with a poly-was then cemented into place with [place] G cement. Once cement had hardened a 47 mm bipolar shell with a 28 mm head and a +0 neck was impacted onto the femoral stem. The hip was then reduced. Final fluoroscopic images showed anatomic reduction of the hip. The capsule was then closed with #1 Vicryl suture. A dilute betadyne lavage was then done for 3 minutes. The joint was then irrigated with normal saline solution. The fascia was closed with #1 PDS suture. Skin was closed with 2-0 Vicryl, diomedes, and a Molly VAC dressing. The patient was then transferred to a hospital bed and taken to the post anesthesia care unit in stable condition. They tolerated the procedure well. I attest to the content of the Intraoperative Record and any orders documented therein. Any exceptions are noted below.
--- NOTE | 2018-06-24 16:48 | XRay Report ---
XR hip LT min 2V CLINICAL HISTORY: Post-Operative implant position postoperative COMPARISON: None. DISCUSSION: Anatomic alignment post total left hip prosthetic. Expected soft tissue postoperative satish nge. IMPRESSION: Anatomic alignment post total left hip arthroplasty. The above report was generated using voice recognition software. It may contain grammatical, syntax or spelling errors. Electronically signed by: Trevin Dorman M.D. 06/24/2018 4:47 PM
--- NOTE | 2018-06-24 17:55 | Anesthesiology Progress Note ---
Date of Service June 24, 2018 Anesthesia Post Procedure Vital Signs Vital Signs: Temp Pulse Pulse Pulse Resp BP BP 06/24/18 17:50 96 H 20 105/65 06/24/18 17:40 98 H 18 110/68 06/24/18 17:30 96 H 17 100/67 06/24/18 17:20 97 H 18 112/66 06/24/18 17:10 97 H 21 107/64 06/24/18 17:00 96 H 15 112/66 06/24/18 16:50 96 H 15 107/66 06/24/18 16:40 109 H 18 111/65 06/24/18 16:32 36.5 C 110 H 16 110/54 L 06/24/18 13:19 38.3 C H 101 H 22 171/86 H 06/24/18 11:09 180/92 H 06/24/18 11:03 35.7 C L 97 H 24 175/107 H 06/24/18 08:55 109 H 171/99 H 06/24/18 07:40 192/98 H 06/24/18 07:29 36.8 C 116 H 24 180/89 H 06/24/18 03:05 37.6 C H 110 H 18 148/91 H 06/24/18 02:00 132 H 196/94 H 06/24/18 01:45 36.8 C 116 H 134 H 18 196/93 H 06/24/18 01:18 129 H 18 174/84 H 06/23/18 21:50 36.8 C 120 H 18 198/114 H Pulse Ox 06/24/18 17:50 93 06/24/18 17:40 94 06/24/18 17:30 93 06/24/18 17:20 93 06/24/18 17:10 95 06/24/18 17:00 98 06/24/18 16:50 99 06/24/18 16:40 97 06/24/18 16:32 94 06/24/18 13:19 06/24/18 11:09 06/24/18 11:03 95 06/24/18 08:55 06/24/18 07:40 06/24/18 07:29 92 06/24/18 03:05 95 06/24/18 02:00 06/24/18 01:45 92 06/24/18 01:18 96 06/23/18 21:50 90 Transfer of Care Handoff Completed per policy Notes Mental Status: alert / awake / arousable Patient Amnestic to Procedure: Yes Nausea / Vomiting: adequately controlled Pain: adequately controlled Airway Patency, RR, SpO2: stable & adequate BP & HR: stable & adequate Hydration State: stable & adequate Anesthetic Complications: no major complications apparent
[2018-06-24] MEDS ORDERED: SODIUM CHLORIDE 0.9% 1000ML 1,000 ML IV SCH (19:48)
[2018-06-24] MEDS ORDERED: NALOXONE HCL 0.4 MG/1 ML VIAL/CARP IV PRN (19:48)
[2018-06-24] MEDS ORDERED: Nursing to Pharmacy Communication ONE (20:12)
[2018-06-24] MEDS ORDERED: POTASSIUM CHLORIDE 20 MEQ TABCR PO ONE (22:30)
[2018-06-24] MEDS ORDERED: FUROSEMIDE 40 MG in SYRINGE 0 ML IV ONE (22:30)
[2018-06-24] MEDS: cefTRIAXone SODIUM 1,000 MG in DEXTROSE 5% 50 ML IV SCH (22:40)
[2018-06-24 23:10] LABS: HCO3 ABG 26 mmol/L (19-24); Oxygen Saturation ABG 88.9 % (90-95); PCO2 ABG 38 mmHg (35-46); PO2 ABG 56 mm/Hg (80-95); pH ABG 7.46 (7.35-7.45)
[2018-06-24 23:24] LABS: BUN Creatinine Ratio 14.2 (10-20); Calcium 8.2 mg/dl (8.5-10.1); Creatinine Clr Calc Pharmacy 65.2 ml/min; Est GFR (African American) 98.9; Est GFR (Non-African American) 85.3; Potassium 3.6 mmol/L (3.5-5.1)
[2018-06-24 23:32] LABS: Allen Test Pos (Pos)
[2018-06-25] MEDS: D5NSS + 20MEQ KCL 20 MEQ/1,000 ML BAG IV SCH (00:28)
[2018-06-25] MEDS: POTASSIUM CHLORIDE / WTR 10 MEQ/100 ML PLCT IV SCH ×4 (00:29→04:51)
--- NOTE | 2018-06-25 07:12 | XRay Report ---
SINGLE VIEW CHEST CLINICAL HISTORY: Hypoxia. FINDINGS: An AP, portable, upright chest radiograph is compared to chest x-ray and chest CT performed earlier the same day 06/24/2018. The examination is degraded by portable technique and patient rotatio n. The heart is enlarged. There is mild pulmonary vascular congestion. Airspace consolidation is see n at the left lung base. Trace pleural effusions are suspected. No pneumothorax is seen. The skeletal structures are osteopenic. The bony thorax is grossly intact. IMPRESSION: 1. Cardiomegaly with evidence of mild congestive failure. 2. Suspect trace pleural effusions. 3. There is airspace consolidation at the left lung base. This could represent atelectasis versus an infectious/inflammatory pneumonitis. Clinical correlation will be required. Electronically signed by: Garcia Dick M.D. 06/25/2018 7:11 AM
[2018-06-25 07:44] LABS: Basophils # (auto) 0.03 K/uL (0-0.2); Basophils % (auto) 0.2 %; Eosinophils # (auto) 0.08 K/uL (0-0.5); Eosinophils % (auto) 0.5 %; Hematocrit (blood only) 36.8 % (37-47); Hemoglobin 12.3 g/dL (12.0-16.0); Immature Granulocytes # (auto) 0.04 K/uL (0.00-0.02); Immature Granulocytes % (auto) 0.3 %; Lymphocytes # (auto) 0.77 K/uL (1.2-3.4); Mean Corpuscular Hgb Conc 33.4 g/dL (32-36); Mean Platelet Volume 11.4 fL (7.4-10.4); Monocytes % (auto) 5.2 %; Neutrophils # (auto) 13.81 K/uL (1.4-6.5); Neutrophils % (auto) 88.8 %; Platelet Count 113 K/uL (130-400); RDW Coefficient of Variation 14.8 % (11.5-14.5); RDW Standard Deviation 46.9 fL (36.4-46.3); Red Blood Count 4.28 M/uL (4.2-5.4); White Blood Count 15.53 K/uL (4.8-10.8)
[2018-06-25] MEDS: ENOXAPARIN INJ 40 MG/0.4 ML SYR SQ SCH (08:24)
[2018-06-25 08:25] LABS: BUN Creatinine Ratio 13.3 (10-20); Calcium 8.3 mg/dl (8.5-10.1); Creatinine Clr Calc Pharmacy 51.3 ml/min; Est GFR (African American) 81.3; Est GFR (Non-African American) 70.1; Potassium 4.2 mmol/L (3.5-5.1)
[2018-06-25] MEDS: VITAMIN B COMPLEX TAB PO SCH (08:25)
[2018-06-25] MEDS: DONEPEZIL HCL 10 MG TAB PO SCH (08:25)
[2018-06-25] MEDS: METOPROLOL TARTRATE 25 MG TAB PO SCH (08:26)
[2018-06-25] MEDS: THIAMINE HCL 50 MG TABLET PO SCH (08:27)
[2018-06-25] MEDS ORDERED: DONEPEZIL HCL 10 MG TAB PO SCH (09:00)
--- NOTE | 2018-06-25 09:52 | Cardiology Progress Note ---
Date of Service June 25, 2018 Assessment & Plan (1) Elevated troponin: Suspect this is related to her tachycardia at time of presentation. Beta blockade being titrated. (2) CAD (coronary artery disease): The patient demonstrated an proximal inferior, inferoseptal, and proximal anterior wall motion abnormalities suggesting coronary artery disease. (3) Left ventricular dysfunction: Ejection fraction mildly depressed at 40-45%. Would increase metoprolol tartrate dose to 50 mg b.i.d.. We can convert to metoprolol succinate prior to discharge. Would initiate low-dose lisinopril or losartan over the next 24-48 hours. (4) Abnormal ECG: ECG notes a complete left bundle branch block with repolarization changes. Uncertain of the duration. Subjective The patient is resting comfortably in bed without complaints of chest pain, dyspnea, palpitations. Physical Exam Physical Exam: In general similarly female lying supine in bed without complaints. HEENT exam is negative. Neck is supple with full carotid upstrokes . There are no carotid bruits. Jugular venous pressure is difficult to assess. Cardiovascular CV reveals a regular rhythm with normal S1-S2. Heart sounds are distant. No obvious murmurs. Lungs are clear anteriorly. Abdomen is soft without bruit. Extremities reveal no peripheral edema. Left hip is stressed. Results & Data Vital Signs (Past 12 Hours) Vital Signs Temp Pulse Pulse Resp BP BP Pulse Ox 06/25/18 07:33 35.5 C L 100 H 20 163/68 H 96 06/25/18 03:05 36.3 C L 98 H 22 156/93 H 91 06/25/18 00:00 06/24/18 22:45 36.7 C 102 H 18 118/75 97 Pulse Ox 06/25/18 07:33 06/25/18 03:05 06/25/18 00:00 100 06/24/18 22:45 Laboratory Results CBCnotes a hemoglobin of 12.3, hematocrit 36.8, white count 15.5, platelet count [id number]. Electrolytes notice sodium of 141, potassium 4.2, chloride 106, bicarb 29, BUN 11, creatinine 0.8, glucose of 120. Troponin I level peaked at 0.187. Currently 0.184. Diagnostic Findings EKG notes normal sinus rhythm with a complete left bundle-branch block and repolarization changes. monitoring coordinator notes occasional PVCs.
[2018-06-25] MEDS ORDERED: TRAMADOL HCL 50 MG TABLET PO PRN (11:22)
[2018-06-25] MEDS ORDERED: METOPROLOL TARTRATE 25 MG TAB PO SCH ×2 (11:30→21:00)
[2018-06-25] MEDS ORDERED: METOPROLOL TARTRATE 25 MG TAB PO STA (11:45)
--- NOTE | 2018-06-25 16:07 | Hospitalist Progress Note ---
Date of Service June 25, 2018 Assessment & Plan (1) Closed hip fracture: Left hip fracture secondary to mechanical fall. --In the setting of severe dementia -- evaluated this morning -- hypoxia likely secondary to atelectasis CT chest: no PE, pneumonia, effusion continue 2 L o2 via NC, incentive spirometry -- s/p Left hip hemiarthroplasty, anterior, cemented(Left) - Brad Kirk, DO June 24, 2018 --Patient has sinus tachycardia Metoprolol tartrate increased to 15 g twice daily per cardiology recommendations Discussed case with Dr. Meek, patient cleared to be transferred to Ortho floor this afternoon --Continue pain management We will order PT and OT evaluation Lovenox for DVT prophylaxis E. coli UTI Urine culture: Positive for E. coli, sensitivities pending Continue ceftriaxone at 52 Hypoxia requiring oxygen. -- CT chest no effusion --Most likely from atelectasis Encouraged to use incentive spirometry Monitor, wean off nasal cannula accordingly CAD (coronary artery disease): The patient demonstrated an proximal inferior, inferoseptal, and proximal anterior wall motion abnormalities suggesting coronary artery disease. Left ventricular dysfunction: Ejection fraction mildly depressed at 40-45%. increased metoprolol tartrate dose to 50 mg b.i.d. convert to metoprolol succinate prior to discharge. add Lisinopril in 1-2 days Abnormal ECG: ECG notes a complete left bundle branch block with repolarization changes. Uncertain of the duration. Hypokalemia -- replaced, resolved Tachycardia. possibly from pain --plan per #1 Mild elevation of alk phosp AP remains 120s Dementia, on Aricept -- at baseline per patient's Deep venous thrombosis prophylaxis, sequential compression devices for now. --Lovenox for DVT prophylaxis Disposition -- will need Rehab after Surgery discussed with patient's Mr. Domingo, he is agreeable comfortable with plan of care Subjective Follow-up for left hip fracture Status post surgery yesterday Seen resting in bed, sitting up, having lunch Patient's Jose L at the bedside, providing history and review of systems Patient not in distress, comfortable, in good spirits Denies having any pain, shortness of breath Patient's also reports that patient is not having significant pain, or any other symptoms Review of Systems Review of Systems: Unobtainable due to cognitive status Physical Exam Physical Exam: General-not oriented, positive CV dementia, not in distress, speaks in sentences with no effort or accessory muscle use Eyes- anicteric Neck- no JVD Lungs- clear breath sounds bilaterally, no rales/wheezes Heart- normal rate, regular rhythm; no murmurs Abdomen- normal bowel sounds, nondistended, soft, nontender Extremities- no pretibial edema, no calf tenderness Positive surgical site in place, mild edema, no tenderness, no hematoma Neuro- alert, oriented x 3; no gross focal neurologic deficits Skin- warm & dry Results & Data Vital Signs (Past 12 Hours) Vital Signs Temp Pulse Pulse Pulse Resp BP BP 06/25/18 15:19 37.0 C 90 18 125/70 06/25/18 11:28 37.3 C 103 H 18 137/69 06/25/18 07:33 35.5 C L 100 H 20 163/68 H Pulse Ox 06/25/18 15:19 90 06/25/18 11:28 91 06/25/18 07:33 96 Laboratory Results Laboratory Results - last 24 hr 06/24/18 06/24/18 06/24/18 21:10 22:55 22:55 WBC RBC Hgb Hct MCV MCH MCHC RDW Std Deviation RDW Coeff of Anoop Plt Count MPV Immature Gran % (Auto) Neut % (Auto) Lymph % (Auto) [place] % (Auto) Eos % (Auto) Baso % (Auto) Immature Gran # (Auto) Neut # (Auto) Lymph # (Auto) [place] # (Auto) Eos # (Auto) Baso # (Auto) ABG pH 7.46 H ABG pCO2 38 ABG pO2 56 L ABG HCO3 26 H ABG O2 Saturation 88.9 L ABG Base Excess 2.4 H Thomas Test Pos Oxygen Given 3L Sodium 143 Potassium 3.6 Chloride 110 H Carbon Dioxide 27 Anion Gap 6.0 BUN 9 Creatinine 0.63 Est Cr Clr Drug Dosing 65.2 Est GFR ( Amer) 98.9 Est GFR (Non-Af Amer) 85.3 BUN/Creatinine Ratio 14.2 Glucose 187 H Calcium 8.2 L Troponin I 0.184 H* 06/25/18 06/25/18 07:22 07:22 WBC 15.53 H RBC 4.28 Hgb 12.3 Hct 36.8 L MCV 86.0 MCH 28.7 MCHC 33.4 RDW Std Deviation 46.9 H RDW Coeff of Anoop 14.8 H Plt Count 113 L MPV 11.4 H Immature Gran % (Auto) 0.3 Neut % (Auto) 88.8 Lymph % (Auto) 5.0 [place] % (Auto) 5.2 Eos % (Auto) 0.5 Baso % (Auto) 0.2 Immature Gran # (Auto) 0.04 H Neut # (Auto) 13.81 H Lymph # (Auto) 0.77 L [place] # (Auto) 0.80 H Eos # (Auto) 0.08 Baso # (Auto) 0.03 ABG pH ABG pCO2 ABG pO2 ABG HCO3 ABG O2 Saturation ABG Base Excess Thomas Test Oxygen Given Sodium 141 Potassium 4.2 D Chloride 106 Carbon Dioxide 29 Anion Gap 6.0 BUN 11 Creatinine 0.80 Est Cr Clr Drug Dosing 51.3 Est GFR ( Amer) 81.3 Est GFR (Non-Af Amer) 70.1 BUN/Creatinine Ratio 13.3 Glucose 120 H Calcium 8.3 L Troponin I (1) Closed hip fracture Encounter type: initial encounter Laterality: left Qualified Code(s): S72.002A - Fracture of unspecified part of neck of left femur, initial encounter for closed fracture
--- NOTE | 2018-06-25 17:47 | Orthopedic Progress Note ---
Date of Service June 25, 2018 Assessment & Plan (1) Closed hip fracture: We will continue Lovenox for DVT prophylaxis. Therapy will try to work with her again tomorrow. Unfortunately she is not going to do well with following commands. She does not need any hip precautions with the anterior approach to the hip that I did. She is orthopedically stable for discharge to a home nursing facility. Present on Admission?: Yes Subjective Gi was seen and examined at bedside today. The nurse was at her at bedside. She is severely demented and did not recall that she had her hip replaced. She did not work well today with physical therapy. She had some trials to stand but was unable to follow any commands. She is still a high fall risk. Physical Exam Musculoskeletal: On physical examination of the left hip, the Molly VAC dressing is to suction. She became combative when I tried to check the wound site. She seems to have active dorsiflexion and plantarflexion of her left ankle but she is unable to follow simple commands. Results & Data Vital Signs (Past 12 Hours) Vital Signs Temp Pulse Pulse Pulse Pulse Pulse Resp 06/25/18 16:55 36.9 C 104 H 18 06/25/18 16:00 89 06/25/18 15:19 37.0 C 90 18 06/25/18 11:28 37.3 C 103 H 18 06/25/18 07:33 35.5 C L 100 H 20 BP BP Pulse Ox 06/25/18 16:55 115/67 70 L 06/25/18 16:00 06/25/18 15:19 125/70 90 06/25/18 11:28 137/69 91 06/25/18 07:33 163/68 H 96 (1) Closed hip fracture Encounter type: initial encounter Laterality: left Qualified Code(s): S72.002A - Fracture of unspecified part of neck of left femur, initial encounter for closed fracture
[2018-06-25] MEDS ORDERED: HALOPERIDOL LACTATE 5 MG/ML 1 ML VIAL IM STA (20:21)
--- NOTE | 2018-06-25 20:27 | Communication Note ---
Date of Service: June 25, 2018 Called by nurse because patient is altered in setting of severe dementia and UTI. She is pulling off her oxygen and saturation is dropping into the 70s. P santi team ruled out PE, pneumonia and effusion and feels her acute hypoxia is secondary to atelectasis. She is not more hypoxic. I examined her at bedside and she is completely delirious and is trying to kiss my hand and pull me towards her, then take off her oxygen. Mitts ordered but no tie down. This was clarified with the nurse, and haldol 2mg IM was also ordered. Per nurse this type of agitation is actually her baseline, so would consider low dose Seroquel on a consistent basis. Will defer to primary team. Nicolas, DO
[2018-06-25] MEDS ORDERED: XOPENEX/ATROVENT 1.25mg/0.5MG NEB COMBO NEB STA (22:14)
[2018-06-25] MEDS ORDERED: LEVALBUTEROL 1.25MG/0.5ML NEB INH STA (22:20)
[2018-06-25] MEDS ORDERED: IPRATROPIUM BROMIDE NEB SOLN 0.02% 2.5 ML VIAL INH STA (22:20)
--- NOTE | 2018-06-25 22:37 | XRay Report ---
XR chest 1V portable CLINICAL HISTORY: Hypoxia COMPARISON STUDY: 06/24/2018 FINDINGS: The heart is mildly enlarged. There is elevation of the interstitium. The findings are cons istent with congestive failure/fluid overload. There are more focal airspace opacities the left lung base. Although likely atelectatic, an infectious/inflammatory process could appear similar. There is stable hilar prominence.[ IMPRESSION: 1. Stable pulmonary vascular congestion/fluid overload 2. Stable hilar prominence likely vascular 3. More focal airspace opacities at the left lung base, likely atelectatic. Electronically signed by: Chad Melgar M.D. 06/25/2018 10:36 PM
[2018-06-25] MEDS ORDERED: FUROSEMIDE 20 MG in SYRINGE 0 ML IV ONE (22:43)
[2018-06-25 23:34] LABS: Partial Thromboplastin Time 26.5 Seconds (21.0-31.0)
[2018-06-25 23:37] LABS: HCO3 ABG 24 mmol/L (19-24); Oxygen Saturation ABG 94.2 % (90-95); PCO2 ABG 31 mmHg (35-46); PO2 ABG 67 mm/Hg (80-95)
[2018-06-25 23:46] LABS: Allen Test POS (Pos)
[2018-06-25] MEDS: cefTRIAXone SODIUM 1,000 MG in DEXTROSE 5% 50 ML IV SCH (23:54)
[2018-06-26 00:13] LABS: Albumin Level 2.8 gm/dl (3.4-5.0); Calcium 8.2 mg/dl (8.5-10.1); Creatinine Clr Calc Pharmacy 52.6 ml/min; Est GFR (African American) 83.8; Est GFR (Non-African American) 72.3; Potassium 3.3 mmol/L (3.5-5.1)
[2018-06-26 00:18] LABS: Basophils # (auto) 0.07 K/uL (0-0.2); Basophils % (auto) 0.5 %; Eosinophils # (auto) 0.96 K/uL (0-0.5); Eosinophils % (auto) 6.6 %; Hematocrit (blood only) 34.4 % (37-47); Hemoglobin 11.8 g/dL (12.0-16.0); Immature Granulocytes # (auto) 0.04 K/uL (0.00-0.02); Immature Granulocytes % (auto) 0.3 %; Mean Corpuscular Hgb Conc 34.3 g/dL (32-36); Mean Corpuscular Volume 84.7 fL (80-100); Mean Platelet Volume 11.5 fL (7.4-10.4); Monocytes # (auto) 0.89 K/uL (0.11-0.59); Monocytes % (auto) 6.1 %; Neutrophils # (auto) 11.05 K/uL (1.4-6.5); Neutrophils % (auto) 75.5 %; Platelet Count 135 K/uL (130-400); RDW Coefficient of Variation 14.8 % (11.5-14.5); RDW Standard Deviation 46.6 fL (36.4-46.3); Red Blood Count 4.06 M/uL (4.2-5.4); White Blood Count 14.61 K/uL (4.8-10.8)
[2018-06-26 00:20] LABS: Albumin Globulin Ratio 0.9 (0.9-2); Bilirubin,Total 0.5 mg/dl (0.2-1); Total Protein 5.8 gm/dl (6.4-8.2)
[2018-06-26 00:23] LABS: Magnesium 1.8 mg/dl (1.8-2.4)
[2018-06-26] MEDS ORDERED: POTASSIUM CHLORIDE 20 MEQ TABCR PO STA (00:31)
[2018-06-26] MEDS ORDERED: MAGNESIUM SULFATE / D5W 1 GM/100 ML BAG IV ONE (00:31)
[2018-06-26 03:47] LABS: Appearance Urine Clear (Clear); Bacteria Urine Automated Negative (Negative); Bilirubin Urine Negative (Negative); Color Urine Yellow; Glucose Urine UA Negative (Negative); Ketones Urine Negative (Negative); Leukocyte Esterase Urine Negative (Negative); Nitrite Urine Negative (Negative); Protein Urine Negative (Negative); Specific Gravity Urine 1.016 (1.000-1.030); Urobilinogen Urine Negative (Negative)
[2018-06-26] MEDS: METOPROLOL TARTRATE 25 MG TAB PO SCH ×2 (04:17→21:18)
--- NOTE | 2018-06-26 09:08 | Orthopedic Progress Note ---
Date of Service June 26, 2018 Assessment & Plan (1) Closed hip fracture: Unfortunately given her advanced dementia she is having a difficult time recovering. She has trouble following commands with physical therapy. The family seems to be helping to take care of her. I do recommend discharged to a long-term facility. Her family feels that the long-term placement may be a more permanent situation for her at this point. She will be on Lovenox 40 mg daily for 4 weeks following the surgery for DVT prophylaxis. She is orthopedically stable for discharge when medically ready. She can follow-up with orthopedics in 2 weeks for staple removal. Our office phone number is [phone]. Orthopedic discharge instructions were placed in the discharge template. If you have any questions please feel free to contact me at [phone]. Present on Admission?: Yes Subjective Gi was seen and examined at bedside this morning. Her daughter was with her at bedside. She had difficult time yesterday with physical therapy. She is unable to follow commands. She seems a little bit better this morning. She does not seem to be in too much pain. Physical Exam Musculoskeletal: On physical examination of her left hip, the Molly VAC dressing is to suction. I am unable to do any neurologic examination because she is unable to cooperate. She seems to be doing well. Results & Data Vital Signs (Past 12 Hours) Vital Signs Temp Pulse Pulse Pulse Resp BP Pulse Ox 06/26/18 08:04 06/26/18 04:15 97 H 147/87 H 95 06/26/18 00:00 06/25/18 23:39 37.0 C 89 16 172/90 H 92 06/25/18 22:35 84 18 95 06/25/18 21:08 100 H 145/81 H Pulse Ox 06/26/18 08:04 98 06/26/18 04:15 06/26/18 00:00 93 06/25/18 23:39 06/25/18 22:35 06/25/18 21:08 (1) Closed hip fracture Encounter type: initial encounter Laterality: left Qualified Code(s): S72.002A - Fracture of unspecified part of neck of left femur, initial encounter for closed fracture
[2018-06-26] MEDS: THIAMINE HCL 50 MG TABLET PO SCH (09:15)
[2018-06-26] MEDS: DONEPEZIL HCL 10 MG TAB PO SCH (09:16)
[2018-06-26] MEDS: VITAMIN B COMPLEX TAB PO SCH (09:16)
[2018-06-26 12:53] LABS: Basophils # (auto) 0.06 K/uL (0-0.2); Basophils % (auto) 0.5 %; Eosinophils # (auto) 0.87 K/uL (0-0.5); Eosinophils % (auto) 7.1 %; Hematocrit (blood only) 36.6 % (37-47); Hemoglobin 11.9 g/dL (12.0-16.0); Immature Granulocytes # (auto) 0.03 K/uL (0.00-0.02); Immature Granulocytes % (auto) 0.2 %; Lymphocytes # (auto) 1.39 K/uL (1.2-3.4); Lymphocytes % (auto) 11.4 %; Mean Corpuscular Hgb Conc 32.5 g/dL (32-36); Mean Corpuscular Volume 87.8 fL (80-100); Mean Platelet Volume 11.5 fL (7.4-10.4); Monocytes # (auto) 0.71 K/uL (0.11-0.59); Monocytes % (auto) 5.8 %; Neutrophils # (auto) 9.14 K/uL (1.4-6.5); Platelet Count 126 K/uL (130-400); RDW Coefficient of Variation 14.9 % (11.5-14.5); Red Blood Count 4.17 M/uL (4.2-5.4)
[2018-06-26 13:17] LABS: BUN Creatinine Ratio 16.3 (10-20); Calcium 8.7 mg/dl (8.5-10.1); Creatinine Clr Calc Pharmacy 51.3 ml/min; Est GFR (African American) 81.3; Est GFR (Non-African American) 70.1; Potassium 4.5 mmol/L (3.5-5.1)
--- NOTE | 2018-06-26 15:35 | Hospitalist Progress Note ---
Date of Service June 26, 2018 Assessment & Plan (1) Closed hip fracture: Left hip fracture secondary to mechanical fall. --In the setting of severe dementia -- hypoxia likely secondary to atelectasis CT chest: no PE, pneumonia, effusion continue 2 L o2 via NC, incentive spirometry -- s/p Left hip hemiarthroplasty, anterior, cemented(Left) - Brad Kirk, DO June 24, 2018 --Patient has sinus tachycardia Metoprolol tartrate increased to 15 g twice daily per cardiology recommend ations Discussed case with Dr. Meek, patient cleared to be transferred to Ortho floor this afternoon 06/26 stable overall wean off o2 when able encouraged patient's to assist patient with incentive spirometry E. coli UTI Urine culture: Positive for E. coli Continue ceftriaxone Day 3 Hypoxia requiring oxygen. -- CT chest no effusion --Most likely from atelectasis Encouraged to use incentive spirometry Monitor, wean off nasal cannula accordingly CAD (coronary artery disease): The patient demonstrated an proximal inferior, inferoseptal, and proximal anterior wall motion abnormalities suggesting coronary artery disease. Left ventricular dysfunction: Ejection fraction mildly depressed at 40-45%. increased metoprolol tartrate dose to 50 mg b.i.d. convert to metoprolol succinate prior to discharge. add Lisinopril in 1-2 days Abnormal ECG: ECG notes a complete left bundle branch block with repolarization changes. Uncertain of the duration. Hypokalemia -- replaced, resolved Tachycardia --plan per #1 Mild elevation of alk phos AP remains 120s Dementia, on Aricept -- at baseline per patient's Deep venous thrombosis prophylaxis, sequential compression devices for now. --Lovenox for DVT prophylaxis Disposition -- will need Rehab after Surgery discussed with patient's Mr. Domingo, he is agreeable comfortable with plan of care Subjective ff up for left hip fracture seen resting in bed, comfortable in good spirits at bedside states patient is more relaxed today, he does not notice that she is in pain, short of breath no other signs/symptoms noted Review of Systems Review of Systems: All systems reviewed & are unremarkable except as noted in HPI & below Physical Exam Physical Exam: General- not in distress, speaks in sentences with no effort or accessory muscle use Eyes- anicteric Neck- no JVD Lungs- clear BS BL Heart- normal rate, regular rhythm; no murmurs Abdomen- normal bowel sounds, nondistended, soft, nontender Extremities- no pretibial edema, no calf tenderness left hip: wound vac in place, mild edema, no warmth/tenderness/erythema Neuro- alert,no new gross focal neurologic deficits Skin- warm & dry Results & Data Vital Signs (Past 12 Hours) Vital Signs Temp Pulse Pulse Resp BP Pulse Ox Pulse Ox 06/26/18 08:04 98 06/26/18 07:30 36.9 C 73 16 135/69 98 06/26/18 04:15 97 H 147/87 H 95 Laboratory Results Laboratory Results - last 24 hr 06/25/18 06/25/18 06/25/18 23:13 23:13 23:21 WBC RBC Hgb Hct MCV MCH MCHC RDW Std Deviation RDW Coeff of Anoop Plt Count MPV Immature Gran % (Auto) Neut % (Auto) Lymph % (Auto) [place] % (Auto) Eos % (Auto) Baso % (Auto) Immature Gran # (Auto) Neut # (Auto) Lymph # (Auto) [place] # (Auto) Eos # (Auto) Baso # (Auto) APTT 26.5 PTT Ratio 1.0 ABG pH 7.50 H ABG pCO2 31 L ABG pO2 67 L ABG HCO3 24 ABG O2 Saturation 94.2 ABG Base Excess 1.4 Thomas Test POS Barometric Pressure 732.9 Oxygen Given 3 L Sodium Potassium Chloride Carbon Dioxide Anion Gap BUN Creatinine Est Cr Clr Drug Dosing Est GFR ( Amer) Est GFR (Non-Af Amer) BUN/Creatinine Ratio Glucose Lactate 1.5 Calcium Magnesium Total Bilirubin AST ALT Alkaline Phosphatase Total Protein Albumin Globulin Albumin/Globulin Ratio Procalcitonin TSH Urine Color Urine Appearance Urine pH Ur Specific Horace Urine Protein Urine Glucose (UA) Urine Ketones Urine Blood Urine Nitrite Urine Bilirubin Urine Urobilinogen Ur Leukocyte Esterase Urine WBC (Auto) Urine RBC (Auto) U Hyaline Cast (Auto) U Epithel Cells (Auto) Urine Bacteria (Auto) Heparin-PF4 Ab Screen 06/25/18 06/25/18 06/25/18 23:36 23:36 23:36 WBC 14.61 H RBC 4.06 L Hgb 11.8 L Hct 34.4 L MCV 84.7 MCH 29.1 MCHC 34.3 RDW Std Deviation 46.6 H RDW Coeff of Anoop 14.8 H Plt Count 135 MPV 11.5 H Immature Gran % (Auto) 0.3 Neut % (Auto) 75.5 Lymph % (Auto) 11.0 [place] % (Auto) 6.1 Eos % (Auto) 6.6 Baso % (Auto) 0.5 Immature Gran # (Auto) 0.04 H Neut # (Auto) 11.05 H Lymph # (Auto) 1.60 [place] # (Auto) 0.89 H Eos # (Auto) 0.96 H Baso # (Auto) 0.07 APTT PTT Ratio ABG pH ABG pCO2 ABG pO2 ABG HCO3 ABG O2 Saturation ABG Base Excess Thomas Test Barometric Pressure Oxygen Given Sodium Potassium Chloride Carbon Dioxide Anion Gap BUN Creatinine Est Cr Clr Drug Dosing Est GFR ( Amer) Est GFR (Non-Af Amer) BUN/Creatinine Ratio Glucose Lactate Calcium Magnesium Total Bilirubin AST ALT Alkaline Phosphatase Total Protein Albumin Globulin Albumin/Globulin Ratio Procalcitonin 0.26 TSH Urine Color Urine Appearance Urine pH Ur Specific Horace Urine Protein Urine Glucose (UA) Urine Ketones Urine Blood Urine Nitrite Urine Bilirubin Urine Urobilinogen Ur Leukocyte Esterase Urine WBC (Auto) Urine RBC (Auto) U Hyaline Cast (Auto) U Epithel Cells (Auto) Urine Bacteria (Auto) Heparin-PF4 Ab Screen Negative 06/25/18 06/26/18 06/26/18 23:36 12:31 12:31 WBC 12.20 H RBC 4.17 L Hgb 11.9 L Hct 36.6 L MCV 87.8 MCH 28.5 MCHC 32.5 RDW Std Deviation 48.0 H RDW Coeff of Anoop 14.9 H Plt Count 126 L MPV 11.5 H Immature Gran % (Auto) 0.2 Neut % (Auto) 75.0 Lymph % (Auto) 11.4 [place] % (Auto) 5.8 Eos % (Auto) 7.1 Baso % (Auto) 0.5 Immature Gran # (Auto) 0.03 H Neut # (Auto) 9.14 H Lymph # (Auto) 1.39 [place] # (Auto) 0.71 H Eos # (Auto) 0.87 H Baso # (Auto) 0.06 APTT PTT Ratio ABG pH ABG pCO2 ABG pO2 ABG HCO3 ABG O2 Saturation ABG Base Excess Thomas Test Barometric Pressure Oxygen Given Sodium 137 140 Potassium 3.3 L D 4.5 D Chloride 102 104 Carbon Dioxide 28 31 Anion Gap 7.0 5.0 BUN 18 D 13 Creatinine 0.78 0.80 Est Cr Clr Drug Dosing 52.6 51.3 Est GFR ( Amer) 83.8 81.3 Est GFR (Non-Af Amer) 72.3 70.1 BUN/Creatinine Ratio 23.0 H 16.3 Glucose 109 H 90 Lactate Calcium 8.2 L 8.7 Magnesium 1.8 Total Bilirubin 0.5 AST 27 ALT 20 Alkaline Phosphatase 109 Total Protein 5.8 L Albumin 2.8 L Globulin 3.0 Albumin/Globulin Ratio 0.9 Procalcitonin TSH 3.840 Urine Color Urine Appearance Urine pH Ur Specific Horace Urine Protein Urine Glucose (UA) Urine Ketones Urine Blood Urine Nitrite Urine Bilirubin Urine Urobilinogen Ur Leukocyte Esterase Urine WBC (Auto) Urine RBC (Auto) U Hyaline Cast (Auto) U Epithel Cells (Auto) Urine Bacteria (Auto) Heparin-PF4 Ab Screen 06/26/18 Unknown WBC RBC Hgb Hct MCV MCH MCHC RDW Std Deviation RDW Coeff of Anoop Plt Count MPV Immature Gran % (Auto) Neut % (Auto) Lymph % (Auto) [place] % (Auto) Eos % (Auto) Baso % (Auto) Immature Gran # (Auto) Neut # (Auto) Lymph # (Auto) [place] # (Auto) Eos # (Auto) Baso # (Auto) APTT PTT Ratio ABG pH ABG pCO2 ABG pO2 ABG HCO3 ABG O2 Saturation ABG Base Excess Thomas Test Barometric Pressure Oxygen Given Sodium Potassium Chloride Carbon Dioxide Anion Gap BUN Creatinine Est Cr Clr Drug Dosing Est GFR ( Amer) Est GFR (Non-Af Amer) BUN/Creatinine Ratio Glucose Lactate Calcium Magnesium Total Bilirubin AST ALT Alkaline Phosphatase Total Protein Albumin Globulin Albumin/Globulin Ratio Procalcitonin TSH Urine Color Yellow Urine Appearance Clear Urine pH 5.0 Ur Specific [place] 1.016 Urine Protein Negative Urine Glucose (UA) Negative Urine Ketones Negative Urine Blood Trace H Urine Nitrite Negative Urine Bilirubin Negative Urine Urobilinogen Negative Ur Leukocyte Esterase Negative Urine WBC (Auto) 1-5 Urine RBC (Auto) 0-4 U Hyaline Cast (Auto) 1-5 U Epithel Cells (Auto) 5-10 H Urine Bacteria (Auto) Negative Heparin-PF4 Ab Screen (1) Closed hip fracture Encounter type: initial encounter Laterality: left Qualified Code(s): S72.002A - Fracture of unspecified part of neck of left femur, initial encounter for closed fracture
[2018-06-26] MEDS: cefTRIAXone SODIUM 1,000 MG in DEXTROSE 5% 50 ML IV SCH (23:44)
[2018-06-27] MEDS: METOPROLOL TARTRATE 25 MG TAB PO SCH ×2 (08:17→20:48)
[2018-06-27] MEDS: VITAMIN B COMPLEX TAB PO SCH (08:17)
[2018-06-27] MEDS: DONEPEZIL HCL 10 MG TAB PO SCH (08:17)
[2018-06-27] MEDS: THIAMINE HCL 50 MG TABLET PO SCH (08:18)
[2018-06-27] MEDS: ENOXAPARIN INJ 40 MG/0.4 ML SYR SQ SCH (08:18)
--- NOTE | 2018-06-27 18:12 | Hospitalist Progress Note ---
Date of Service June 27, 2018 Assessment & Plan (1) Closed hip fracture: Left hip fracture secondary to mechanical fall. --In the setting of severe dementia -- hypoxia likely secondary to atelectasis CT chest: no PE, pneumonia, effusion continue 2 L o2 via NC, incentive spirometry -- s/p Left hip hemiarthroplasty, anterior, cemented(Left) - Brad Kirk, DO June 24, 2018 --06/25 Patient has sinus tachycardia Metoprolol tartrate increased to 15 g twice daily per cardiology geo mmendations Discussed case with Dr. Meek, patient cleared to be transferred to Ortho floor this afternoon 06/26 stable overall wean off o2 when able encouraged patient's to assist patient with incentive spirometry 06/27 Remains at 2 L O2 by nasal cannula Repeat x-ray today Otherwise patient appears euvolemic and not in distress Unfortunately patient does not follow commands to use incentive spirometry Wean off O2 accordingly E. coli UTI Urine culture: Positive for E. coli Completed IV ceftriaxone x3 days Hypoxia requiring oxygen. -- CT chest no effusion --Most likely from atelectasis Encouraged to use incentive spirometry Monitor, wean off nasal cannula accordingly Management noted above CAD (coronary artery disease): The patient demonstrated an proximal inferior, inferoseptal, and proximal anterior wall motion abnormalities suggesting coronary artery disease. Left ventricular dysfunction: Ejection fraction mildly depressed at 40-45%. increased metoprolol tartrate dose to 50 mg b.i.d. convert to metoprolol succinate prior to discharge. Start lisinopril 10 mg p.o. daily, monitor Repeat chest x-ray ordered for today Abnormal ECG: ECG notes a complete left bundle branch block with repolarization changes. Uncertain of the duration. Hypokalemia -- replaced, resolved Tachycardia --plan per #1 Mild elevation of alk phos AP remains 120s Dementia, on Aricept -- at baseline per patient's Deep venous thrombosis prophylaxis, sequential compression devices for now. --Lovenox for DVT prophylaxis Disposition -- will need Rehab after Surgery discussed with patient's Mr. Domingo, he is agreeable comfortable with plan of care Subjective Follow-up for left hip fracture Seen resting in bed, comfortable, Mr. Domingo at the bedside States patient is comfortable, no new complaints No shortness of breath, nausea, appetite is good Review of Systems Review of Systems: All systems reviewed & are unremarkable except as noted in HPI & below Physical Exam Physical Exam: General-pleasantly confused, not in distress, speaks in sentences with no effort or accessory muscle use Eyes- anicteric Neck- no JVD Lungs- clear breath sounds, no crackles or wheezing bilaterally Heart- normal rate, regular rhythm; no murmurs Abdomen- normal bowel sounds, nondistended, soft, nontender Extremities- no pretibial edema, no calf tenderness Left hip-wound VAC in place, mild edema, no erythema/tenderness/hematoma Neuro- alert, not oriented; no gross focal neurologic deficits Skin- warm & dry Results & Data Vital Signs (Past 12 Hours) Vital Signs Temp Pulse Resp BP Pulse Ox Pulse Ox 06/27/18 15:35 95 06/27/18 14:53 36.7 C 89 16 149/78 H 95 06/27/18 13:37 92 06/27/18 08:00 92 06/27/18 07:46 36.4 C L 97 H 22 162/78 H 94 (1) Closed hip fracture Encounter type: initial encounter Laterality: left Qualified Code(s): S72.002A - Fracture of unspecified part of neck of left femur, initial encounter for closed fracture
[2018-06-27] MEDS ORDERED: LISINOPRIL 5 MG TAB PO STA (18:14)
--- NOTE | 2018-06-27 18:40 | XRay Report ---
XR chest 1V portable CLINICAL HISTORY: Hypoxia. Failure. COMPARISON STUDY: 06/25/2018 FINDINGS: The heart remains mildly enlarged. There is aortic tortuosity. There is persistent but impr oving pulmonary vascular congestion/fluid overload.[ IMPRESSION: Improving pulmonary vascular congestion/fluid overload. Electronically signed by: Chad Melgar M.D. 06/27/2018 6:39 PM
[2018-06-27] MEDS: cefTRIAXone SODIUM 1,000 MG in DEXTROSE 5% 50 ML IV SCH (22:13)
[2018-06-28] MEDS ORDERED: ALBUMIN 25% 50 ML IV ONE (06:16)
[2018-06-28 07:25] LABS: BUN Creatinine Ratio 27.8 (10-20); Calcium 8.7 mg/dl (8.5-10.1); Creatinine Clr Calc Pharmacy 64.1 ml/min; Est GFR (African American) 98.4; Est GFR (Non-African American) 84.9; Potassium 3.7 mmol/L (3.5-5.1)
[2018-06-28] MEDS: ENOXAPARIN INJ 40 MG/0.4 ML SYR SQ SCH (08:52)
[2018-06-28] MEDS: THIAMINE HCL 50 MG TABLET PO SCH (08:53)
[2018-06-28] MEDS: METOPROLOL TARTRATE 25 MG TAB PO SCH ×2 (08:53→20:41)
[2018-06-28] MEDS: DONEPEZIL HCL 10 MG TAB PO SCH (08:53)
[2018-06-28] MEDS: VITAMIN B COMPLEX TAB PO SCH (08:54)
[2018-06-28] MEDS: LISINOPRIL 5 MG TAB PO SCH (08:54)
--- NOTE | 2018-06-28 17:33 | Hospitalist Progress Note ---
Date of Service June 28, 2018 Assessment & Plan (1) Closed hip fracture: Left hip fracture secondary to mechanical fall. --In the setting of severe dementia -- hypoxia likely secondary to atelectasis CT chest: no PE, pneumonia, effusion continue 2 L o2 via NC, incentive spirometry -- s/p Left hip hemiarthroplasty, anterior, cemented(Left) - Brad Kirk, DO June 24, 2018 --06/25 Patient has sinus tachycardia Metoprolol tartrate increased to 15 g twice daily per cardiology geo mmendations Discussed case with Dr. Meek, patient cleared to be transferred to Ortho floor this afternoon 06/26 stable overall wean off o2 when able encouraged patient's to assist patient with incentive spirometry 06/27 Remains at 2 L O2 by nasal cannula Repeat x-ray today Otherwise patient appears euvolemic and not in distress Unfortunately patient does not follow commands to use incentive spirometry Wean off O2 accordingly 06/28 Patient saturating 94% on room air today Continue to wean off oxygen accordingly Repeat x-ray vascular congestion improved Stable overall On Lovenox for DVT prophylaxis-will need 4 weeks of Lovenox for DVT prophylaxis Follow-up with Dr. Kirk orthopedic surgeon 2 weeks after surgery Awaiting acceptance to long-term facility E. coli UTI Urine culture: Positive for E. coli Completed IV ceftriaxone x3 days Hypoxia requiring oxygen. -- CT chest no effusion --Most likely from atelectasis Encouraged to use incentive spirometry Monitor, wean off nasal cannula accordingly Management noted above CAD (coronary artery disease): The patient demonstrated an proximal inferior, inferoseptal, and proximal anterior wall motion abnormalities suggesting coronary artery disease. Left ventricular dysfunction: Ejection fraction mildly depressed at 40-45%. increased metoprolol tartrate dose to 50 mg b.i.d. convert to metoprolol succinate prior to discharge. Lisinopril 5 mg p.o. daily, monitor Continue to monitor blood pressure and heart rate Appears euvolemic at this time Patient will need to follow-up closely with sole cementer Dr. Meek 1 week after discharge Abnormal ECG: ECG notes a complete left bundle branch block with repolarization changes. Uncertain of the duration. Hypokalemia -- replaced, resolved Tachycardia --plan per #1 Mild elevation of alk phos AP remains 120s Dementia, on Aricept -- at baseline per patient's Deep venous thrombosis prophylaxis, sequential compression devices for now. --Lovenox for DVT prophylaxis Disposition --Awaiting acceptance to long-term facility Subjective For left hip fracture Seen with nursing unit coordinator at the bedside Patient is sitting up in chair, in good spirits Off oxygen by nasal cannula, saturating 94% on room air Not in distress, speaks in sentences with effort Denies any symptoms Per nursing unit coordinator the patient is doing well this morning, had breakfast, no complaints Review of Systems Review of Systems: All systems reviewed & are unremarkable except as noted in HPI & below Physical Exam Physical Exam: General-not oriented, pleasantly confused, not in distress, speaks in sentences with no effort or accessory muscle use Eyes- anicteric Neck- no JVD Lungs-breath sounds, no crackles wheezing bilaterally Heart- normal rate, regular rhythm; no murmurs Abdomen- normal bowel sounds, nondistended, soft, nontender Extremities- no pretibial edema, no calf tenderness Left hip: , mild edema, no tenderness no erythema Neuro- alert, oriented x 3; no gross focal neurologic deficits Skin- warm & dry Results & Data Vital Signs (Past 12 Hours) Vital Signs Temp Pulse Pulse Resp BP Pulse Ox Pulse Ox 06/28/18 15:19 36.9 C 78 18 146/80 H 95 06/28/18 08:09 37.1 C 90 17 110/62 97 06/28/18 07:37 93 06/28/18 07:05 36.9 C 88 16 158/88 H 91 06/28/18 06:45 36.3 C L 78 16 156/99 H 90 (1) Closed hip fracture Encounter type: initial encounter Laterality: left Qualified Code(s): S72.002A - Fracture of unspecified part of neck of left femur, initial encounter for closed fracture
[2018-06-28] MEDS: cefTRIAXone SODIUM 1,000 MG in DEXTROSE 5% 50 ML IV SCH ×2 (22:11→22:30)
[2018-06-29] MEDS: DONEPEZIL HCL 10 MG TAB PO SCH (08:42)
[2018-06-29] MEDS: METOPROLOL TARTRATE 25 MG TAB PO SCH ×2 (08:43→20:37)
[2018-06-29] MEDS: THIAMINE HCL 50 MG TABLET PO SCH (08:43)
[2018-06-29] MEDS: ENOXAPARIN INJ 40 MG/0.4 ML SYR SQ SCH (08:43)
[2018-06-29] MEDS: LISINOPRIL 5 MG TAB PO SCH (08:43)
[2018-06-29] MEDS: VITAMIN B COMPLEX TAB PO SCH (08:43)
--- NOTE | 2018-06-29 22:36 | Hospitalist Progress Note ---
Date of Service delayed entry date of service below June 29, 2018 Assessment & Plan (1) Closed hip fracture: Left hip fracture secondary to mechanical fall. --In the setting of severe dementia -- hypoxia likely secondary to atelectasis CT chest: no PE, pneumonia, effusion continue 2 L o2 via NC, incentive spirometry -- s/p Left hip hemiarthroplasty, anterior, cemented(Left) - Brad Kirk, June 24, 2018 --06/25 Patient has sinus tachycardia Metoprolol tartrate increased to 15 g twice daily per cardiology recommendations Discussed case with Dr. Meek, patient cleared to be transferred to Ortho floor this afternoon 06/26 stable overall wean off o2 when able encouraged patient's to assist patient with incentive spirometry 06/27 Remains at 2 L O2 by nasal cannula Repeat x-ray today Otherwise patient appears euvolemic and not in distress Unfortunately patient does not follow commands to use incentive spirometry Wean off O2 accordingly 06/28 Patient saturating 94% on room air today Continue to wean off oxygen accordingly Repeat x-ray vascular congestion improved Stable overall On Lovenox for DVT prophylaxis-will need 4 weeks of Lovenox for DVT prophylaxis Follow-up with Dr. Brad Kirk orthopedic surgeon 2 weeks after surgery [facility]waiting acceptance to [facility] facility 06/29 off o2 supplement via NC stable overall awaiting acceptance to SNF E. coli UTI Urine culture: Positive for E. coli Completed IV ceftriaxone x3 days Hypoxia requiring oxygen. -- CT chest no effusion --Most likely from atelectasis Encouraged to use incentive spirometry -- weaned off O2 supplement CAD (coronary artery disease): on echo for pre-op eval, The patient demonstrated an proximal inferior, inferoseptal, and proximal anterior wall motion abnormalities suggesting coronary artery disease. Cardiology consulted started on Metoprolol, Lisinopril will also add ASA 81mg po daily- with food while admitted, did not have any cardiac symptoms will need Cardiology ff up with Dr. Meek- In [facility] for further evaluation and management Left ventricular dysfunction: Ejection fraction mildly depressed at 40-45%. started on metoprolol tartrate dose to 50 mg b.i.d. convert to metoprolol succinate prior to discharge. also added Lisinopril 5 mg p.o. daily, Appears euvolemic at this time, monitor volume status monitor BP and HR Patient will need to follow-up closely with financial service representative Dr. Meek 1-2 weeks after discharge Abnormal ECG: ECG notes a complete left bundle branch block with repolarization changes. Uncertain of the duration. Hypokalemia -- replaced, resolved Tachycardia --plan per #1 Mild elevation of alk phos AP remains 120s ff up as outpatient Dementia, on Aricept -- at baseline per patient's Deep venous thrombosis prophylaxis, sequential compression devices for now. --Lovenox for DVT prophylaxis Disposition --[facility]waiting acceptance to [facility] facility Subjective ff up for left hip fracture seen sitting up in bed BRNUO Angelo at bedside patient is comfortable, not in distress, smiling states she feels fine overall pleasantly confused no new complaints off nasal cannula- no signs respiratory distress Review of Systems Review of Systems: All systems reviewed & are unremarkable except as noted in HPI & below Physical Exam Physical Exam: General-not oriented, not in distress, speaks in sentences with no effort or accessory muscle use Eyes- anicteric Neck- no JVD Lungs- clear breath sounds bilaterally, no crackles no wheezes Heart- normal rate, regular rhythm; no murmurs Abdomen- normal bowel sounds, nondistended, soft, nontender Extremities- right:no pretibial edema, no calf tenderness left: wound vac in place, mild edema, no erythema/warmth/tenderness Neuro- alert, not oriented; no gross focal neurologic deficits Skin- warm & dry Results & Data Vital Signs (Past 12 Hours) Vital Signs Temp Pulse Resp BP Pulse Ox 06/29/18 16:05 36.8 C 90 18 136/86 90 (1) Closed hip fracture Encounter type: initial encounter Laterality: left Qualified Code(s): S72.002A - Fracture of unspecified part of neck of left femur, initial encounter for closed fracture
[2018-06-29] MEDS: cefTRIAXone SODIUM 1,000 MG in DEXTROSE 5% 50 ML IV SCH (23:07)
[2018-06-30] MEDS: LISINOPRIL 5 MG TAB PO SCH (07:43)
[2018-06-30] MEDS: METOPROLOL TARTRATE 25 MG TAB PO SCH (07:44)
[2018-06-30] MEDS: ENOXAPARIN INJ 40 MG/0.4 ML SYR SQ SCH (07:44)
[2018-06-30] MEDS: DONEPEZIL HCL 10 MG TAB PO SCH (07:44)
[2018-06-30] MEDS: THIAMINE HCL 50 MG TABLET PO SCH (07:44)
[2018-06-30] MEDS: VITAMIN B COMPLEX TAB PO SCH (07:44)
--- NOTE | 2018-06-30 09:52 | Hospitalist Progress Note ---
Date of Service June 30, 2018 Assessment & Plan (1) Closed hip fracture: Left hip fracture secondary to mechanical fall. --In the setting of severe dementia -- s/p Left hip hemiarthroplasty, anterior, cemented(Left) - Brad Kirk DO June 24, 2018 -- post op patient noted to have sinus tachycardia Laceworker Dr. Meek- consulted Metoprolol tartrate increased to 50 mg twice daily p -- patient also required O2 supplement via NC hypoxia likely secondary to atelectasis CT chest: no PE, pneumonia, effusion weaned off O2 supplement Stable overall On Lovenox for DVT prophylaxis-will need 4 weeks of Lovenox for DVT prophylaxis Follow-up with Dr. Brad Kirk orthopedic surgeon 2 weeks after surgery transfer to [facility] for continued PT/OT E. coli UTI Urine culture: Positive for E. coli Completed IV ceftriaxone x3 days Hypoxia -- mild, required 2L O2 via NC -- CT chest no effusion --Most likely from atelectasis Encouraged to use incentive spirometry -- weaned off O2 supplement CAD (coronary artery disease): on echo for pre-op eval, The patient demonstrated an proximal inferior, inferoseptal, and proximal anterior wall motion abnormalities suggesting coronary artery disease. Cardiology consulted- Dr. Meek started on Metoprolol, Lisinopril will also add ASA 81mg po daily- with food Protonix PO while on Lovenox while admitted, did not have any cardiac symptoms will need Cardiology ff up with Dr. Meek- [facility] for further evaluation and management Left ventricular dysfunction: Ejection fraction mildly depressed at 40-45%. started on metoprolol tartrate dose to 50 mg b.i.d. convert to metoprolol succinate prior to discharge. also added Lisinopril 5 mg p.o. daily, Appears euvolemic at this time, monitor volume status monitor BP and HR Patient will need to follow-up closely with hog sticker Dr. Meek 1-2 weeks after discharge Abnormal ECG: ECG notes a complete left bundle branch block with repolarization changes. Uncertain of the duration. Hypokalemia -- replaced, resolved Tachycardia --plan per #1 Mild elevation of alk phos AP remains 120s ff up as outpatient Dementia, on Aricept -- at baseline per patient's Deep venous thrombosis prophylaxis, sequential compression devices for now. --Lovenox for DVT prophylaxis x 4 weeks since surgery Disposition --d/c to [facility] PCP ff up c/o [facility] Ortho ff up with Dr. Brad Kirk in 1 week Subjective ff up for left hip fracture resting in bedside chair smiling, comfortable off o2, not in distress no new complaint no new symptoms noted Review of Systems Review of Systems: All systems reviewed & are unremarkable except as noted in HPI & below Physical Exam Physical Exam: General-not oriented, not in distress, speaks in sentences with no effort or accessory muscle use Eyes- anicteric Neck- no JVD Lungs- clear breath sounds bilaterally Heart- normal rate, regular rhythm; no murmurs Abdomen- normal bowel sounds, nondistended, soft, nontender Extremities- no pretibial edema, no calf tenderness Left hip: wound vac in place; no erythema/warmth/tenderness, mild edema Neuro- alert, oriented x 3; no gross focal neurologic deficits Skin- warm & dry Results & Data Vital Signs (Past 12 Hours) Vital Signs Temp Pulse Pulse Resp BP Pulse Ox 06/30/18 07:56 36.7 C 88 18 154/72 H 06/29/18 23:05 36.9 C 91 H 16 163/81 H 92 (1) Closed hip fracture Encounter type: initial encounter Laterality: left Qualified Code(s): S72.002A - Fracture of unspecified part of neck of left femur, initial encounter for closed fracture
--- NOTE | 2018-06-30 10:02 | Discharge Summary ---
Date of Service June 30, 2018 Admission HPI Per Admitting Provider CHIEF COMPLAINT: Status post fall and left hip fracture. HISTORY OF PRESENT ILLNESS: A 78-year-old female with past medical history significant for Alzheimer's dementia. No other significant medical problems. She is only on Aricept and vitamin B1. She follows with Dr. White as PCP and [facility] for neurology . Lives with her . Since last 4-5 years, she has dementia.Now she only can recognize her . does not recognize her kids. She can eat regular food, walks without help, but walks slowly. Today, she was coming from the bathroom when she fell and could not get up and was brought in here and found to have left hip fracture. As per , there are no heart problems or lung issues. Here we could not get any history from the patient as the patient has severe dementia. She is somewhat restless and trying to get up from the bed and holding her . says he is going to stay with the patient tonight. She has tachycardia, hypoxia requiring oxygen. EKG shows sinus tachycardia. Chest x-ray, she has possible congestion. There is no edema of the lower extremity. Blood pressure is high, could be situational, mild elevation of white count. Hemoglobin is stable. Kidney function is fine. Urine looks infected. We are going to admit the patient to tele floor. The patient's and son are requesting Dr. Diaz for orthopedics and Dr. Francisco for cardiology. They personally know the doctors. Initially he wanted to take to [facility], but he is okay to stay here and get advice from Dr. Diaz. worked in [facility] in the past. ALLERGIES: No known drug allergies. PAST MEDICAL HISTORY: As mentioned above. PAST SURGICAL HISTORY: Hysterectomy with tubal ligation. MEDICATIONS: Aricept 10 mg p.o. a.m. and vitamin B1. FAMILY HISTORY: Noncontributory. SOCIAL HISTORY: No smoking history. Currently living with her . REVIEW OF SYSTEMS: Unobtainable. Admission Exam Per Admitting Provider PHYSICAL EXAMINATION: GENERAL: The patient is old and frail, restless. VITAL SIGNS: Temperature 36.8, pulse 120, respiratory rate 18, blood pressure 198/114, and oxygen 90% on room air. HEENT: No pallor, no icterus. Pupils equal, round, reactive to light. NECK: No JVD, no neck masses. CARDIOVASCULAR: S1, S2 heard, tachycardia. No murmurs. RESPIRATORY SYSTEM: Normal AP diameter. No accessory muscle use. Mild bibasilar crackles. No wheezing. ABDOMEN: Soft, bowel sounds present, nontender. No distention. CENTRAL NERVOUS SYSTEM: Not oriented, restless, does not obey any commands. Moves extremities. EXTREMITIES: No edema, no erythema. Left lower extremity is slightly shortened and externally rotated. Principal Diagnosis Displaced left femoral neck fracture. Left hip hemiarthroplasty, anterior, cemented(Left) - Brad Kirk, DO Discharge Exam General-not oriented, not in distress, speaks in sentences with no effort or accessory muscle use Eyes- anicteric Neck- no JVD Lungs- clear breath sounds bilaterally Heart- normal rate, regular rhythm; no murmurs Abdomen- normal bowel sounds, nondistended, soft, nontender Extremities- no pretibial edema, no calf tenderness Left hip: wound vac in place; no erythema/warmth/tenderness, mild edema Neuro- alert, oriented x 3; no gross focal neurologic deficits Skin- warm & dry Discharge Data Allergies Allergy/AdvReac Type Severity Reaction Status Date / Time No Known Allergies Allergy Unknown Verified 06/24/18 00:20 Consultations 06/23/18 22:35 ED Decision to Admit Stat 06/24/18 01:45 Consult Case Management - Discharge Planning Routine 06/24/18 08:00 Consult Cardiology Routine Consult Orthopedic Surgery Routine 06/24/18 19:48 Consult Case Management - Discharge Planning Routine Procedures Performed Operation Date: 06/24/18 07:00 Actual Procedures p Left hip hemiarthroplasty, anterior, cemented(Left) - Brad Kirk DO Ordered Studies 06/24/18 07:12 CT angio chest PE protocol Stat FINDINGS: No pathologically enlarged axillary mediastinal or hilar lymph nodes were visualized. There was no evidence of thoracic aortic dilatation. There were no pulmonary artery filling defects to indicate acute pulmonary embolism. The study is mildly compromised due to respiratory motion artifact with suboptimal evaluation of the lower lobe pulmonary artery branches No pleural effusions are visualized. There is respiratory motion artifact. There are no significant pleural effusions. There are basilar opacities, statistically atelectatic. There is suspected splenomegaly. There is 11 mm left adrenal adenoma IMPRESSION: 1. Technically limited study secondary to respiratory motion artifact 2. No pulmonary emboli identified 3. Dependent parenchymal opacities statistically atelectatic 4. Suspected splenomegaly 06/24/18 14:00 FL fluoroscopy <1hr Routine FL hip LT 1V Routine Hospital Course (1) Closed hip fracture: Left hip fracture secondary to mechanical fall. --In the setting of severe dementia -- s/p Left hip hemiarthroplasty, anterior, cemented(Left) - Brad Kirk, June 24, 2018 -- post op patient noted to have sinus tachycardia Law Secretary Dr. Meek- consulted Metoprolol tartrate increased to 50 mg twice daily p -- patient also required O2 supplement via [place] hypoxia likely secondary to atelectasis CT chest: no PE, pneumonia, effusion weaned off O2 supplement Stable overall On Lovenox for DVT prophylaxis-will need 4 weeks of Lovenox for DVT prophylaxis Follow-up with Dr. Brad Kirk orthopedic surgeon 2 weeks after surgery transfer to [facility] for continued PT/OT E. coli UTI Urine culture: Positive for E. coli Completed IV ceftriaxone x3 days Hypoxia -- mild, required 2L O2 via [place] -- CT chest no effusion --Most likely from atelectasis Encouraged to use incentive spirometry -- weaned off O2 supplement CAD (coronary artery disease): on echo for pre-op eval, The patient demonstrated an proximal inferior, inferoseptal, and proximal anterior wall motion abnormalities suggesting coronary artery disease. Cardiology consulted- Dr. Meek started on Metoprolol, Lisinopril will also add ASA 81mg po daily- with food Protonix PO while on Lovenox while admitted, did not have any cardiac symptoms will need Cardiology ff up with Dr. Meek- [facility] for further evaluation and management Left ventricular dysfunction: Ejection fraction mildly depressed at 40-45%. started on metoprolol tartrate dose to 50 mg b.i.d. convert to metoprolol succinate prior to discharge. also added Lisinopril 5 mg p.o. daily, Appears euvolemic at this time, monitor volume status monitor BP and HR Patient will need to follow-up closely with coiler operator Dr. Meek 1-2 weeks after discharge Abnormal ECG: ECG notes a complete left bundle branch block with repolarization changes. Uncertain of the duration. Hypokalemia -- replaced, resolved Tachycardia --plan per #1 Mild elevation of alk phos AP remains 120s ff up as outpatient Dementia, on Aricept -- at baseline per patient's Abnormal CT Findings -- suspected Splenomegaly, Left Adrenal adenoma ff up and monitor as outpatiet Deep venous thrombosis prophylaxis, sequential compression devices for now. --Lovenox for DVT prophylaxis x 4 weeks since surgery Disposition --d/c to [facility] PCP ff up c/o [facility] Ortho ff up with Dr. Bard Kirk in 1 week Total Time Total Time Spent Total Time Spent (In Minutes): 50 minutes Discharge Plan Discharge Items Reason For Visit: FALL Discharge Diagnosis: s/p FALL, LEFT HIP FRACTURE, S/P HIP SURGERY Condition: Fair Discharge Goals: Diagnostic testing and Therapeutic intervention Activity: As commented below Activity Comment: FALL PRECAUTIONS, ALWAYS WITH ASSISTANCE Non-emergency contact: Primary Care Provider and Surgeon Call non-emergency contact if: you have any medication questions, your symptoms worsen, your pain is not controlled, your pain is worsening, your pain is unusual for you, your pain is concerning for you, you have a fever, your wound has increased redness, your wound has increased drainage and your wound pain has increased Follow-up/Referrals: Adolfo White MD [Primary Care Provider] - Brad Kirk DO [Physician] - Diet: Heart Healthy Addtl Provider Instructions: MONITOR BLOOD PRESSURE, HEART RATE AND VOLUME STATUS. PLEASE REFER TO ACCOMPANYING HOSPITAL DISCHARGE SUMMARY FOR FURTHER DETAILS. ORTHOPEDIC INSTRUCTIONS Hip Hemiarthroplasty Activity and Therapy Recommendations: 1. You were shown a series of exercises in the hospital. Do these exercises three times each day if you are able. 2. Get up and walk several times each day if you are capable. Make sure you have assistance is needed. For the first four weeks, try not to stand or walk for more than one hour at a time. If you do stand or walk for more than one hour, you will not hurt anything, but your leg will likely swell. 3. As you feel comfortable, you may change from the walker or crutches to a cane and then to independent walking if you are able. Please be safe. Medications: 1. Narcotic You will likely be sent from the hospital with the narcotic pain medication that worked best throughout your stay. 2. Lovenoxyou will be taking Lovenox 40 mg subcu daily for 4 weeks for DVT prophylaxis. 3. Other medications may be given for specific circumstances. If you have any questions, please call the office at [phone]. 4. Resume previous home medications unless otherwise instructed TEDs/Elastic Stockings: The white elastic stockings help limit swelling and prevent blood clots from fo rming in your legs. The more you wear them, the more they work. Wear them for six weeks. Dressing Care: You will likely have a purple VAC dressing after surgery. This dressing will keep the incision dry and promote early healing. After about 8 days the batteries will wear out and the VAC will lose suction. Simply remove the dressing at that time and throw everything away, including the small suction machine. Then, you may leave the diomedes open to air or cover them with a dry dressing so they do not rub on your pants. The diomedes will be removed at your 2 week follow-up appointment. Showering: You may shower immediately with the purple VAC dressing. Let the shower spray hit your opposite side and slowly pat the plastic dry. Do not soak the dressing. After the dressing is removed you may shower normally with the diomedes exposed. Let soapy water run over the diomedes and pat them dry. Things To Watch For: 1. Drainage from the incision site that occurs more than one week after your surgery. 2. Increased redness at the incision site. 3. Fever above 102 degrees Fahrenheit. 4. Unusual chest pain or shortness of breath. 5. Call [facility] at with any of the above problems Follow-Up Visit: Follow-up with Dr. Kirk 2 weeks after your day of surgery. Please call to make an appointment or be sure your rehab facility has made one. If you have any questions call Prescriptions: New lisinopril [Zestril] 5 mg Tablet 5 mg PO QAM 30 Days Qty: 30 RF: 1 enoxaparin 40 mg/0.4 mL Syringe 40 mg subcut Q24H 24 Days Qty: 9.6 RF: 0 metoprolol succinate 50 mg tablet extended release 24 hr 50 mg PO DAILY Qty: 30 RF: 1 acetaminophen [Mapap (acetaminophen)] 325 mg Tablet 650 mg PO Q4H PRN (Reason: fever or pain) Qty: 30 RF: 0 pantoprazole [Protonix] 40 mg tablet,delayed release (DR/EC) 40 mg PO DAILY Qty: 24 RF: 0 Continued donepezil 10 mg Tablet 10 mg PO DAILY RF: 0 vitamin B complex Tablet 1 tab PO DAILY RF: 0 Stand-Alone Forms: [facility] Skilled Items Patient informed of condition?: Yes DNR: Yes Discharge Level of Care: Skilled Communicable Disease: No Discharge Prognosis: Stable Admission Data Admit Date/Time: 06/23/18 23:47 Attending Provider: Jenaro Penn Admit Provider: Patel Henning Primary Care Provider: Adolfo White Other Providers: Patel Henning ; Jamison Francisco ; Bruno Diaz V Service: Medical
== END 2018-06-30 13:34 | DRG 470 ==
LOC: ED 21:38 → 2S 23:47 → 3E 06-25 16:47